=== PATIENT | male | born 1955 | race Caucasian/White ===

== ENCOUNTER 2017-06-09 18:00 | Outpatient (RCR) | payer OTHER, SELFPAY ==
--- NOTE | 2017-02-12 15:32 | HP.OTEVAL_ITS ---
Patient's Visit Information JOHN ROBLES is a 61 year old M, referred to Occupational Therapy by Mariangel Cardoso,, with a diagnosis of TIA. Date of Evaluation: 02/12/17 Occupational Therapist: Abby Ramey - Subjective Subjective: Pt. arrived and noted that symptoms occured last Wednesday into Sat morning. John noted he felt fine wednesday night but when waking sat morning he had numbness and was unable to move R arm. He noted that since time of TIA he has continued to have weakness from elbow down to hand. He noted on Wednesday he had no movement in hand and has since been working on being able to open close fingers and mvoe wrist. He notes he had CTS release and trigger finger release of R hand. Initally when waking with symptoms he thought it was related to CTS release but once calling surgeon and symptoms persistent after a 30 min increment he went into ER. MRI has been conducted and confirmed TIA. - Pain Right Hand 0 Pain Intensity Range: 0 - Objective Objective/Observation: Pt. is able to form light composite fist. He has decreased ability to isolate hand movements and complete FMC related tasks. Lateral pinch is emerging as well as tripod. Extensor mechanisms of hand are extremely weak and limited finger isolation at this time. - Sensation Sensation Comments: Tested at later date to promote further undertsanding of sensory system involvement. From clinical observation Pt. very aware of where and what R hand is doing. Sensation does not seem to be pertinent factor but will be addressed with upcoming sessions. - In-Hand Manipulation Finger to Palm Translation: Severe - Right, Unable - Right, Normal - Left Palm to Finger Translation: Severe - Right, Unable - Right, Normal - Left Shift: Severe - Right, Normal - Left Rotation: Severe - Right, Unable - Right, Normal - Left - Goals Goal:: Pt. to increased strength of R dominant hand to with 10-15 lbs of L hand to promote increased strength and ability to manaipulate self-care and work items 4.5 trials 80% of the time by d/c. Goal:: Pt. R hand and wrist RFOM to be that of equal value of L nonaffected hand 4/5 trials 80% of the time to promote increased ability to move R hand and complete ADL/IADls by d/c. Goal:: Pt. to have increased finger dexterity and FMC ability through demonstration of decreased time and increased performance on 9 hole pegbaord test 2/3 trials 75% of the time with R affected hand by time of d/c. Goal:: Pt. to be (I) to complete edema management technqiues 4/5 trials 80% of the time to decrease swelling of fingers and promote increased (I) during adl/ iadls byt time of d/c. Goal:: Pt. to be mod (I) to return to all ADl/IADls with R hand 4/5 trials 80% o the time to promote increased (I) and ability to return to PLOF by time of d/ c. - Rehabilitation General Assessment: Pt., John, s/p TIA a week ago on over the nigh between wednesday to Feb 06. He previously has CTS release and trigger finger release completed . He notes no complications of R CTS at this time. Since TIA movements and muscle contractions from R elbow to hand are significantly decreased and weakened. He had since started gaining back ROM and strength in R affected hand. However, significant weakness and ROM difficulties persist and interfere with ADl/IADLs. OT to work on increasing (I) with R dominant hand to promote return to all ADl/IADls tasks including writing and typing to promote increased (I) for work related activities. Rehabilitation Potential: Good - Anticipated Interventions Anticipated Interventions: Early Active Motion, A/AAROM/PROM, Strengthening, Edema Control, Massage, Sensory Retraining, Modalities, Joint Protection/Energy Conservation, Fine Motor Coord/Yogi, Neuro Reeducation, ADL Training, Caregiver Training, Home Program - Visit Plan Frequency: 2x /Week Duration: 4-6 Weeks General Plan: John to recieve OT servcies 2x4-6 weeks with use of modalities as need to promote increased muscle contraction to help increase and promote increased ROM, strength, bilateral hand and coordination tasks, and FMC tasks to promote increased (I) and safety and decreased need for assistance to return to PLOF and all ADl/IADls. TEXT: Thank you for the opportunity to evaluate your patient. For Medicare and Medicare HMO plans, please review the plan of care and approve it. It will need to be FAXED BACK to us at [phone] for Medicare purposes. Please let me know if there are questions or concerns regarding this plan of care. Physician Signature: Date:
--- NOTE | 2017-05-12 18:52 | OTREVAL_ITS ---
Mariangel Cardoso, It has been my pleasure to treat JOHN ROBLES over the last 19 visits for TIA. Please see the progress note below for an update on the occupational therapy plan of care! Subjective: Arrievd and noted that he is doing well. 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 States he feels 80%-85% back to PLOF. Objective/Function: Progressing from previous measuremnts two weeks ago. 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 Sensation tested and has progressed from prior measurements. Sensation is as follows: R 2nd 3.84, 3rd 3.84, 4th 3.84, 5th 3.61, thumb 3.84; L 2nd 3.22, 3rd 3.84, 4th 2.83, 5th 2.83, thumb 3.22. 9 hole pegboard completed for finger dexterity and coordiantion measurments R hand scored 31.78 (between 0 -10th percetnile) and L 26.00 (between 50-75th percentiles). He is progressing at this time. Plan Frequency: 2x /Week Duration: 4-6 Weeks Plan: continue POC 1x every other week for 2 more sessions. He is to continue HEP and add in additional exercises. Goals - Goals Goal:: Pt. to increased strength of R dominant hand to with 10-15 lbs of L hand to promote increased strength and ability to manaipulate self-care and work items 4.5 trials 80% of the time by d/c. Goal:: Pt. R hand and wrist RFOM to be that of equal value of L nonaffected hand 4/5 trials 80% of the time to promote increased ability to move R hand and complete ADL/IADls by d/c. Goal:: Pt. to have increased finger dexterity and FMC ability through demonstration of decreased time and increased performance on 9 hole pegbaord test 2/3 trials 75% of the time with R affected hand by time of d/c. Goal:: Pt. to be (I) to complete edema management technqiues 4/5 trials 80% of the time to decrease swelling of fingers and promote increased (I) during adl/ iadls byt time of d/c. Goal:: Pt. to be mod (I) to return to all ADl/IADls with R hand 4/5 trials 80% o the time to promote increased (I) and ability to return to PLOF by time of d/ c. Anticipated Interventions Anticipated Interventions: Early Active Motion, A/AAROM/PROM, Strengthening, Edema Control, Massage, Sensory Retraining, Modalities, Joint Protection/Energy Conservation, Fine Motor Coord/Yogi, Neuro Reeducation, ADL Training, Caregiver Training, Home Program Please do not hesitate to contact me at [phone] by phone or Fax: if you have questions or concerns regarding this new plan of care! Sincerely, Abby Ramey
--- NOTE | 2017-05-12 18:57 | HP.OTCOM ---
OT Communication Note 05/12/[address] Mariangel Guerreromarlon Langston has been attending OT session over the past month and a half. His latest measurements on 04/21/17 are as follows: Reassessment completed. Pt. strength progressing as he had limited mobility of R hand and forearm at start of session. Pt. 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 Touch sensation is as follows as measured through monofilament test: R 2nd 4.08, 3rd 3.84, 4th 3.84, 5th 3.61, thumb 3.84; L 2nd 3.22, 3rd 3.84, 4th 3.61, 5th 3.61, thumb 3.61. Kian has continued to progress as shown through measurements taken today 05/12/17. 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 Sensation tested and has progressed from prior measurements. Sensation is as follows: R 2nd 3.84, 3rd 3.84, 4th 3.84, 5th 3.61, thumb 3.84; L 2nd 3.22, 3rd 3.84, 4th 2.83, 5th 2.83, thumb 3.22. 9 hole pegboard completed for finger dexterity and coordination measurements R hand scored 31.78 (between 0-10th percentile) and L 26.00 (between 50-75th percentiles). He is progressing at this time. Kian is to continue OT for 2 more session every other week. He is to continue HEP. Sincerely, Abby Ramey Contact Information
--- NOTE | 2017-05-12 18:59 | OTREVAL_ITS ---
Mariangel Cardoso, It has been my pleasure to treat JOHN ROBLES over the last 19 visits for TIA. Please see the progress note below for an update on the occupational therapy plan of care! Subjective: Arrievd and noted that he is doing well. 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 States he feels 80%-85% back to PLOF. Objective/Function: John has been attending OT session over the past month and a half. His latest measurements on 04/21/17 are as follows: Reassessment completed. Pt. strength progressing as he had limited mobility of R hand and forearm at start of session. Pt. 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 Touch sensation is as follows as measured through monofilament test: R 2nd 4.08 , 3rd 3.84, 4th 3.84, 5th 3.61, thumb 3.84; L 2nd 3.22, 3rd 3.84, 4th 3.61, 5th 3.61, thumb 3.61. John has continued to progress as shown through measurements taken today 05/12/17. 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 Sensation tested and has progressed from prior measurements. Sensation is as follows: R 2nd 3.84, 3rd 3.84, 4th 3.84, 5th 3.61, thumb 3.84; L 2nd 3.22, 3rd 3.84, 4th 2.83, 5th 2.83, thumb 3.22. 9 hole pegboard completed for finger dexterity and coordination measurements R hand scored 31.78 (between 0-10th percentile) and L 26.00 (between 50-75th percentiles). He is progressing at this time. Plan Frequency: 2x /Week Duration: 4 Weeks Plan: continue POC 1x every other week for 2 more sessions. He is to continue HEP and add in additional exercises. Goals - Goals Goal:: Pt. to increased strength of R dominant hand to with 10-15 lbs of L hand to promote increased strength and ability to manaipulate self-care and work items 4.5 trials 80% of the time by d/c. Goal:: Pt. R hand and wrist RFOM to be that of equal value of L nonaffected hand 4/5 trials 80% of the time to promote increased ability to move R hand and complete ADL/IADls by d/c. Goal:: Pt. to have increased finger dexterity and FMC ability through demonstration of decreased time and increased performance on 9 hole pegbaord test 2/3 trials 75% of the time with R affected hand by time of d/c. Goal:: Pt. to be (I) to complete edema management technqiues 4/5 trials 80% of the time to decrease swelling of fingers and promote increased (I) during adl/ iadls byt time of d/c. Goal:: Pt. to be mod (I) to return to all ADl/IADls with R hand 4/5 trials 80% o the time to promote increased (I) and ability to return to PLOF by time of d/ c. Anticipated Interventions Anticipated Interventions: Early Active Motion, A/AAROM/PROM, Strengthening, Edema Control, Massage, Sensory Retraining, Modalities, Joint Protection/Energy Conservation, Fine Motor Coord/Yogi, Neuro Reeducation, ADL Training, Caregiver Training, Home Program Please do not hesitate to contact me at [phone] by phone or Fax: if you have questions or concerns regarding this new plan of care! Sincerely, Abby Ramey
--- NOTE | 2017-09-09 12:09 | HP.OTDCSUM_ITS ---
HP - OT D/C Summary It has been my pleasure to treat JOHN ROBLES under orders from Mariangel Cardoso, for the diagnosis of TIA for a total of 21 visit(s). Please see the following information for a summary of their discharge status. - Objective Objective/Function: John has continued to progress with therapy activities. 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 Sensation testing completed through monofilament testing is as follows: R 2nd 3.84, 3rd 3.22, 4th 2.83, 5th 2.83, thumb 3.84; L 2nd 3.22, 3rd 3.22m 4th 2.83, 5th 2.83, thumb 3.61. Completed 9 hole pegboard tstwith R hand 30.79 and L 23.75. Majority of measurements have progressed since last re-eval 05/12/17. - Goals Patient Goals: Regain Mobility, Regain Strength, Return to Work, Decrease Swelling/Stiffness, Improve Fine Motor Skills, Use Hand/Wrist/Arm Normally Again , Sleep Better, Decrease Tingling/Numbness, Increase ROM, Be More Independent in ADLS, Decrease Sensitivity, Resume Former Household Responsibilities (Cooking ,Cleaning,Yard, etc.), Resume Hobbies Goal:: Pt. to increased strength of R dominant hand to with 10-15 lbs of L hand to promote increased strength and ability to manaipulate self-care and work items 4.5 trials 80% of the time by d/c. Goal:: Pt. R hand and wrist RFOM to be that of equal value of L nonaffected hand 4/5 trials 80% of the time to promote increased ability to move R hand and complete ADL/IADls by d/c. Goal:: Pt. to have increased finger dexterity and FMC ability through demonstration of decreased time and increased performance on 9 hole pegbaord test 2/3 trials 75% of the time with R affected hand by time of d/c. Goal:: Pt. to be (I) to complete edema management technqiues 4/5 trials 80% of the time to decrease swelling of fingers and promote increased (I) during adl/ iadls byt time of d/c. Goal:: Pt. to be mod (I) to return to all ADl/IADls with R hand 4/5 trials 80% o the time to promote increased (I) and ability to return to PLOF by time of d/ c. - Plan Plan: He is to follow up via phone call in two weeks. If doing well and progressing he will be d/c'd. If do not hear from him in 3 months will d/c'd chart regardless. - D/C Information If there are questions or concerns regarding this patient's occupational therapy , please fell free to call me at [phone]. Thank you for the referral of this patient. Sincerely, Abby Ramey
== END 2017-06-09 18:30 | disposition home or self-care (01) ==
LOC: OT 18:00
PROVIDERS: Family Provider Family Medicine; PCP Family Medicine; Visit Provider Psychiatry & Neurology Neurology
DX: R29.898 Other symptoms and signs involving the musculoskeletal system (principal)
CPT/HCPCS: 97018; 97110; 97140; 97166; 97530

== ENCOUNTER 2018-08-25 22:06 | Observation (INO) | payer OTHER, SELFPAY ==
[2018-08-25 22:08] VITALS: BP 160/85; PULSE 81; RESP 16; TEMP 36.9; O2SAT 97; BMI 33.7
[2018-08-25 22:15] LABS: Bedside Glucose 120 mg/dL (70-110)
[2018-08-25 22:56] VITALS: BP 155/90; PULSE 72; RESP 18; O2SAT 94; O2SAT 96
--- NOTE | 2018-08-25 22:56 | CT_ITS ---
STUDY: CT BRAIN WITHOUT CONTRAST REASON FOR EXAM: Male, 63 years old. Right arm weakness and numbness RADIATION DOSAGE (If Supplied By Facility): CTDIvol = ( 44.99 ) mGy, DLP = ( 846.73 ) mGycm TECHNIQUE: Transaxial CT imaging of the brain was performed without administration of intravenous contrast material. Individualized dose optimization techniques were used for this CT. COMPARISON: 02/25/2017 FINDINGS: Normal soft tissue structures. Normal calvarium. Normal size ventricles and extra-axial spaces for the patient's age. There are areas of decreased attenuation within the white matter tracts of the supratentorial brain, consistent with microvascular disease changes. Normal age-related changes of the basal ganglia. Normal brainstem. Normal cerebellum. There is no intracranial hemorrhage. There are no findings of an acute ischemic infarction. Left ethmoid sinus disease. CT/Brain/Head without Contrast IMPRESSION: No CT evidence of acute infarct or hemorrhage. If there is clinical concern for hyperacute ischemia that is not evident by CT, MRI should be considered if possible. Electronically Signed: Major Sawyer MD at 23:50 EDT Tel , Service support ,
--- NOTE | 2018-08-25 22:56 | RAD_ITS ---
STUDY: X-RAY CHEST REASON FOR EXAM: Male, 63 years old. Right arm numbness TECHNIQUE: Single frontal view of the chest. COMPARISON: 02/06/2017 FINDINGS: The lungs are clear and expanded. There is no demonstrated pleural abnormality. Normal size heart. Normal mediastinum and russ. Normal visualized pulmonary arteries. Normal visualized aortic arch and descending thoracic aorta. Normal visualized thoracic spine. Normal visualized ribs, clavicles, and shoulders. There is no demonstrated abnormality of the visualized soft tissue structures of the upper abdomen. RAD/Chest 1 View IMPRESSION: Normal x-ray examination of the chest. Electronically Signed: Major Sawyer MD at 23:17 EDT Tel , Service support ,
--- NOTE | 2018-08-25 22:56 | EKG12_ITS ---
Test Reason : WEAKNESS Blood Pressure : / mmHG Vent. Rate : 072 BPM Atrial Rate : 072 BPM P-R Int : 180 ms QRS Dur : 100 ms QT Int : 384 ms P-R-T Axes : 013 013 037 degrees QTc Int : 420 ms Normal sinus rhythm Poor R wave progression Confirmed by PAULINO SANCHEZ, TRACY ([id number]), editor managing director [place] ([id number] on 08/29/2018 4:23:21 PM Referred By: GAVI[place] Confirmed By:TRACY BOB MD
--- NOTE | 2018-08-25 22:59 | ED.DCSUM_ITS ---
- ER Visit Summary Date of Service: 08/25/18 Chief Complaint: Numbness tingling and weakness of right arm History of Present Illness: The patient is a 63 M who presents with numbness tingling and weakness of the right arm. This began acutely about 2 hours ago. It is similar to when he has had a prior stroke 2 years ago. He denies any speech difficulty or slurred speech. He denies any recent illness. No fevers chest pain shortness of breath vomiting. Physical Examination: Afebrile blood pressure 160/85 vitals otherwise normal Moist mucous members Heart regular rate and rhythm Lungs clear Abdomen soft NIH stroke scale is 2, he does have drift of the right upper extremity, he has ataxia out of proportion to weakness of the right upper extremity Test Results: EKG shows sinus rhythm at a rate of 72. CBC BMP coagulation studies normal. Troponin negative. Chest x-ray normal. CT the head shows no acute infarct or hemorrhage. Emergency Department Course and Treatment: While the patient was here he also transiently had an episode of flashing lights in his vision. He has had this previously. At the time of my reevaluation it is actually resolved. Patient states he was told that this could be related to silent migraine. Although complex migraine may cause visual changes and even neurological symptoms such as paresthesias given his history of prior symptoms with stroke I do feel he will need admitted for further evaluation including MRI. He does not meet TPA criteria as his NIH is only 2. Treatment Plan: [] Disposition: Admit Impression: Right arm weakness This note was generated with [employer] dictation software. It may contain incorrect words, spelling, and punctuation that were not noted in review of the chart prior to signing ED Disposition - Plan for ED Patient: Referrals: Hernandez Botello MD [Primary Care Provider] -
[2018-08-25 23:26] VITALS: BP 154/74; PULSE 70; RESP 17; O2SAT 95
[2018-08-25 23:56] VITALS: BP 137/77; PULSE 72; RESP 17; O2SAT 94
[2018-08-25 23:56] LABS: Absolute Lymphocyte Count 2.08 X10^3/ul (0.83-4.51); Absolute Neutrophil Count 5.8 X10^3/uL (2.0-7.7); Basophil# 0.02 X10^3/uL; Basophil% 0.2 % (0-1); Eosinophil# 0.25 X10^3/uL; Eosinophils% 2.7 % (0-5); Hematocrit 42.1 % (40-54); Hemoglobin 14.7 g/dl (13.0-16.5); Lymphocyte # 2.08 X10^3/ul (4.0); Lymphocyte % 22.5 % (19-41); Mean Corp Hgb Conc 34.9 g/gl (32-36); Mean Corpuscular Hgb 30.3 pg (27.0-32.0); Mean Corpuscular Volume 86.8 fL (80-94); Mean Platelet Vol. 9.1 fl (6.2-12.0); Monocyte# 1.02 X10^3/uL; Neutrophil # 5.83 X10^3/uL (2.7-7.7); Neutrophil % 63.1 % (47-70); Platelet Count 246 K/mm3 (150-450); RBC Distribution Width CV 12.9 % (11.6-14.6); RBC Distribution Width SD 40.1 fl (35.1-43.9); Red Blood Count 4.85 M/mm3 (4.6-6.2); White Blood Count 9.3 K/mm3 (4.4-11.0)
[2018-08-26] VITALS (11 sets, daily range): BP systolic 132–146; BP diastolic 70–89; PULSE 61–74; RESP 13–18; TEMP 36.5–36.8; O2SAT 94–98; BMI 31.8
[2018-08-26 00:02] LABS: POSITIVE COUNT NO; POSITIVE DIFFERENTIAL NO; POSITIVE MORPHOLOGY NO; Prothrombin Time (Protime)PT. 12.9 SECONDS (11.7-14.9)
[2018-08-26 00:10] LABS: Anion Gap 7 (5-15); BUN 18 mg/dL (7-18); Calcium,Total 8.8 mg/dL (8.5-10.1); Chloride 107 mmol/L (98-107); Creatinine, Serum 1.06 mg/dL (0.70-1.30); EST Glomerular Filtration Rate 75 mL/min (>60); Est Glom Filt Rate - Afr Amer 91 mL/min (>60); Estimated Creatinine Clearance 67.56 ml/min; Glucose 97 mg/dL (74-106); Potassium 3.6 mmol/L (3.5-5.1); Sodium Level 142 mmol/L (136-145)
--- NOTE | 2018-08-26 00:56 | PCM.HP.STD ---
Problem List (1) HLD (hyperlipidemia) Status: Chronic (2) HTN (hypertension) Status: Chronic History of Present Illness Date of Admission: 08/26/18 Chief Complaint: right arm weakness The patient is a 63 year old M with a significant history of hypertension; hyperlipidemia;. TIA who presented to the emergency department with 2-hour history of right weakness and numbness. Also at the emergency department patient saw floaters which he attributes to probable migraine. Emergency department doctor reported that patient had a drift of his right arm; and incoordination using his right arm and that was disproportional to his right arm weakness. Past Medical History Past Medical History (Chronic Problems): Chronic Problems Colon polyps (Chronic) GERD (gastroesophageal reflux disease) (Chronic) Obesity (BMI 30.0-34.9) (Chronic) HLD (hyperlipidemia) (Chronic) HTN (hypertension) (Chronic) Allergies No Known Allergies Allergy (Verified 08/25/18 22:11) Home Medications: Ambulatory Orders Medication Instructions Recorded Aspirin [Aspirin, Baby] 81 mg PO DAILY@0800 02/25/17 Atorvastatin Calcium [Lipitor] 80 mg PO QHS 02/25/17 Lisinopril [Zestril] 40 mg PO DAILY 02/25/17 Multivitamin [Daily Multiple 1 each PO DAILY 02/25/17 Vitamin] Hydrochlorothiazide [Hctz] 12.5 mg PO DAILY 08/26/18 Surgical History: appendectomy, - - Carpal tunnel release on the right wrist 01/01/17. Lives: Spouse/ Significant Other Smoking Status: Never smoker - *Family History Maternal History Items: Diabetes, Hypertension Paternal History Items: Diabetes, Heart Disease - father had an [place] in his 80's and he was a diet controlled diabetic Review of Systems Constitutional: Denies: Chills, Fever, Weight Change Eyes: Reports: Vision Change - Transient HEENT: Denies: Head Aches, Sinus Congestion, Sinus Drainage Cardiovascular: Denies: Chest Pain, Palpitations Respiratory: Denies: Cough, Shortness of breath at rest, Sputum production Gastrointestinal: Denies: Abdominal Pain, Nausea, Vomiting Genitourinary: Denies: Dysuria Musculoskeletal: Denies: Joint Pain, Joint Tenderness Skin: Denies: Rash, Wounds Neurological: Reports: Focal weakness - Right arm, Numbness - Right arm. Denies: Tingling Psychiatric: Denies: Anxiety, Depression, Homicidal Ideations, Suicidal Ideations Hematologic/ Lymphatic: Denies: Easy Bruising, Easy Bleeding VTE Information - Inpt Only VTE Present on Admission: No VTE Mechan Device Prophylaxis: None VTE Pharm Prophylaxis ordered?: Yes - Physical Exam General: Alert, Oriented x3, Cooperative HEENT: Atraumatic, PERRLA, EOMI, Normocephalic Neck: Supple, No JVD, Negative Carotid Bruits Lungs: Clear to auscultation, Normal air movement Cardiovascular: Regular rate, No murmurs Abdomen: Bowel Sounds Present, Soft, Non Tender Extremities: No edema, Capillary Refill Less than 3 Seconds Skin: No rashes, No breakdown Musculoskeletal: No Tenderness to Palpation of Joints or Extremities Neurological: Deep Tendon Reflexes 2+/4 and Symmetrical, - - Right arm dysmetria with difficulty to do [id number] test. Right upper arm strength appears to be slightly weaker than left. Strength in all extremities unremarkable. Psych/Mental Status: Normal Affect, Appropriate Vital Signs Temp Pulse Resp BP Pulse Ox 98.4 F 70 13 146/87 H 94 08/25/18 22:08 08/26/18 00:35 08/26/18 00:35 08/26/18 00:35 08/26/18 00:35 Oxygen Delivery Method Room Air Weight: 97.9 kg Body Mass Index (BMI) 33.7 Finger Stick Blood Glucose 120 Laboratory Tests Past 24 Hrs 08/25/18 08/25/18 08/25/18 23:45 23:45 23:45 WBC 9.3 RBC 4.85 Hgb 14.7 Hct 42.1 MCV 86.8 MCH 30.3 MCHC 34.9 RDW 12.9 RDW Differential 40.1 Plt Count 246 MPV 9.1 Immature Gran % (Auto) 0.500 Neut % (Auto) 63.1 Lymph % (Auto) 22.5 [place] % (Auto) 11.0 H Eos % (Auto) 2.7 Baso % (Auto) 0.2 Absolute Neuts (auto) 5.8 Absolute Lymphs (auto) 2.08 Total Counted Not Reportable PT 12.9 INR 1.0 APTT 25.0 Sodium 142 Potassium 3.6 Chloride 107 Carbon Dioxide 28.0 Anion Gap 7 BUN 18 Creatinine 1.06 Estim Creat Clear Calc 67.56 Est GFR (MDRD) Af Amer 91 Est GFR (MDRD) Non-Af 75 BUN/Creatinine Ratio 17.0 Glucose 97 Calcium 8.8 Troponin I < 0.015 POC Glucose 08/25/18 22:13 POC Glucose 120 H Assessment/Plan All Active Problems Stroke (Acute) Right arm weakness (Acute) The patient is a 63 year old M with a significant history of hypertension; hyperlipidemia;. TIA who presented to the emergency department with 2-hour history of right weakness and numbness; drift of his right and dysmetria consistent with strokelike symptoms. Stroke-like symptoms NINDS NIH Scale on admission was 2 CT of the head was unremarkable -Check Hba1c, Lipid level Physical therapy, occupational therapy to work with patient. N.p.o. until bedside swallow eval. Continue Daily aspirin and High intensity statin Permissive hypertension. Control blood pressure with labetalol for systolic blood pressure of more than 220 or diastolic blood pressure of more than 120. 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 Patient requesting something to relax and before MRI. Ativan enroute MRI ordered. Echocardiogram ordered. Hypertension On presentation his blood pressure was not within goal. However will do permissive hypertension for stroke. Trend blood pressures. Hyperlipidemia High intensity statin continued. EDUAR Bipap per home settings DVT prophylaxis Code Visit OBSV E&M: 17826 Initial observation care L3
--- NOTE | 2018-08-26 02:00 | MRI_ITS ---
We are attempting to reach an attending provider to discuss findings. An addendum with communication details will be sent when the communication is complete. STUDY: MRI BRAIN WITHOUT CONTRAST REASON FOR EXAM: Male, 63 years old. rt arm numbness since 9pm yesterday, hx prev stroke 2017 TECHNIQUE: Standardized multiplanar fat and water weighted pulse sequences were obtained. COMPARISON: February 07, 2017 FINDINGS: Normal size of the ventricles and extra-axial spaces for the patient's age. There are a limited number of small white matter hyperintensities, distributed throughout the deep white matter tracts of the cerebral hemispheres, consistent with mild chronic white matter ischemic changes. There are small areas of restricted diffusion involving the posterior left frontal lobe with probable signal on ADC map, consistent with acute infarction. This is approximately the same region as the previous infarct in 2017. Normal bilateral basal ganglia. Normal thalami. There is no extra-axial fluid accumulation. Normal flow voids within the major intracranial circulation suggesting patency by spin echo criteria. Normal sella turcica, pituitary gland, infundibular stalk, optic chiasm and hypothalamus. Normal tectal plate and pineal gland. Normal midbrain, pancho and medulla. Normal cerebellum. Normal basal cisterns. Normal bilateral temporal bones. MRI/Brain without Contrast IMPRESSION: Small acute infarcts of the left frontal lobe. Electronically Signed: Nora Warner MD at 9:40 EDT Tel , Service support ,
--- NOTE | 2018-08-26 02:00 | MRI_ITS ---
STUDY: MRA NECK WITHOUT CONTRAST REASON FOR EXAM: Male, 63 years old. CVA -- rt arm numbness since 9pm yesterday, hx prev stroke 2017. TECHNIQUE: Source images were obtained, MIPs were performed. The study was performed unenhanced. COMPARISON: February 06, 2017 FINDINGS: Examination is degraded by motion artifact. RIGHT CAROTID ARTERIES: Antegrade flow within the right common carotid artery (CCA). Antegrade flow within the right carotid bulb. There appears to be high-grade stenosis at the origin of the right ICA. Antegrade flow within the visualized cervical portion of the right internal carotid artery. LEFT CAROTID ARTERIES: Antegrade flow within the left common carotid artery (CCA). Antegrade flow within the left common carotid bulb. There appears to be high-grade stenosis at the origin of the left ICA. Antegrade flow within the visualized cervical portion of the left internal carotid artery. VERTEBRAL ARTERIES: Antegrade flow within the bilateral vertebral artery. MRI/MRA Neck WITH and W/O Contrast IMPRESSION: High-grade stenosis of the bilateral ICAs. Further characterization with sonography or CTA is recommended. Electronically Signed: Nora Warner MD at 9:28 EDT Tel , Service support ,
--- NOTE | 2018-08-26 02:00 | ECHOCS_ITS ---
Reason For Study: TIA Procedure This was a 2D Doppler, Color Flow transthoracic echocardiogram. The study was technically difficult. Contrast injection was performed. Exam performed portable in patient room. Left Ventricle Normal LV size. Left ventricular systolic function is normal. The estimated ejection fraction is 60 %. No evidence for diastolic dysfunction. No regional wall motion abnormalities noted. Right Ventricle Normal RV size. Normal systolic function. Atria Normal left atrium. Normal right atrium. No doppler evidence for ASD. Mitral Valve There is no mitral annular calcification. Normal mitral valve. Trivial mitral valve insufficiency. Tricuspid Valve Normal tricuspid valve. Trivial tricuspid valve insufficiency. Right ventricular systolic pressure estimated to be 21 mmHg. Aortic Valve Trisinus/trileaflet aortic valve. Mild diffuse aortic valve thickening. Mild focal aortic valve calcification. Mild (1+) eccentric aortic valve insufficiency. Pulmonic Valve The pulmonic valve is not well visualized. Mild (1+) pulmonic valve insufficiency. Great Vessels Normal sized aortic root. Pericardium/Pleural No pericardial effusion. Medication Diluted definity 3ml given slow IV push to enhance endocardial definition. MMode/2D Measurements & Calculations LVIDd: 4.7 cm IVSd: 1.1 cm Ao root diam: 3.7 cm LVIDs: 3.0 cm LVPWd: 1.1 cm RVDd: 4.1 cm FS: 35.5 % LAV(MOD-bp): 49.2 ml LVAd ap4: 32.6 cm2 SV(MOD-sp4): 70.0 ml LAV(MOD-bp) Indexed: 24.2 ml/m2 EDV(MOD-sp4): 103.2 ml LAV(MOD-sp2): 46.1 ml EDV(sp4-el): 105.5 ml LAV(MOD-sp4): 47.7 ml LVAs ap4: 16.7 cm2 ESV(MOD-sp4): 33.2 ml ESV(sp4-el): 32.8 ml EF(MOD-sp4): 67.8 % EF(sp4-el): 68.9 % SV(sp4-el): 72.7 ml LA A4 area: 18.5 cm2 LA dimension(2D): 3.9 cm RA A4 area: 13.5 cm2 Doppler Measurements & Calculations MV E max fili: 66.4 cm/sec Lat Peak E' Fili: 7.9 cm/sec Med Peak E' Fili: 5.1 cm/sec MV A max fili: 91.9 cm/sec E/E' lat: 8.4 E/E' med: 13.0 MV E/A: 0.72 Ao V2 max: 132.0 cm/sec AI max fili: 364.8 cm/sec LV V1 max: 109.9 cm/sec Ao max P.0 mmHg AI max P.7 mmHg LV V1 max P.8 mmHg Ao V2 mean: 85.9 cm/sec Ao mean P.3 mmHg AI dec slope: 190.7 cm/sec2 Ao V2 VTI: 30.4 cm AI P1/2t: 560.4 msec PA V2 max: 73.2 cm/sec TR max fili: 212.7 cm/sec TR max P.1 mmHg Interpretation Summary The study was technically difficult. Contrast injection was performed. Left ventricular systolic function is normal. The estimated ejection fraction is 60 %. Trivial mitral valve insufficiency. Trivial tricuspid valve insufficiency. Mild diffuse aortic valve thickening. Mild focal aortic valve calcification. Mild (1+) pulmonic valve insufficiency. Right ventricular systolic pressure estimated to be 21 mmHg. No evidence for diastolic dysfunction. Ordering Physician: Perry Frost Referring Physician: Dez Botello Performed By: Giuliana Urban, BRITT, RVT
--- NOTE | 2018-08-26 02:00 | MRI_ITS ---
STUDY: MRA OF THE HEAD WITHOUT CONTRAST REASON FOR EXAM: Male, 63 years old. CVA CVA MRA - Head/Neck. Right arm weakness and numbness TECHNIQUE: 3-D [id number]-[id number] (TOF) imaging was performed with MIPs. The study was performed unenhanced. COMPARISON: None. FINDINGS: Normal bilateral petrous carotid arteries. Normal right cavernous carotid artery with a normal supraclinoid bifurcation. Normal left cavernous carotid artery with a normal supraclinoid bifurcation. Normal right A1 segments of the anterior cerebral artery. Normal left A1 segments of the anterior cerebral artery. Normal intact anterior communicating artery (ACOM). Normal bilateral A2 segments of the anterior cerebral arteries. Normal right M1 and M2 segments of the middle cerebral arteries, with a normal M1 bifurcation. Normal left M1 and M2 segments of the middle cerebral arteries, with a normal M1 bifurcation. Normal right posterior communicating artery (PCOM). There is non-visualization of the left posterior communicating artery (PCOM). Normal bilateral vertebral arteries. Normal basilar artery with a normal basilar bifurcation. Normal bilateral posterior cerebral arteries. There is no demonstrated aneurysm of the [place]. There is no major vessel occlusion or hemodynamically significant stenosis. There is no demonstrated abnormality of the visualized brain. MRI/MRA Head ONLY without Contrast IMPRESSION: There is no major vessel occlusion or hemodynamically significant stenosis. Electronically Signed: Nora Warner MD at 9:24 EDT Tel , Service support ,
[2018-08-26] MEDS: Heparin Injection (Vial) 5,000 UNIT/ML VIAL 5000 UNIT SC (05:14)
[2018-08-26] MEDS: Atorvastatin Calcium 80 MG Tablet PO (05:14)
[2018-08-26 06:14] LABS: Cholesterol 98 mg/dL (200); High Density Lipoprotein 36 mg/dL; Triglycerides 80 mg/dL; Very Low Density Lipoprotein 16 mg/dL (5-40)
[2018-08-26] MEDS: 0.9% NaCl Peripheral Flush Adult/Peds IV (06:35)
[2018-08-26] MEDS: LORazepam 2 MG/ML Syringe 1 MG IV (06:39)
[2018-08-26 07:09] LABS: Hemoglobin A1c 5.8 % (4.2-6.3)
[2018-08-26] MEDS: Aspirin 81 MG TAB.CHEW PO (08:11)
--- NOTE | 2018-08-26 09:20 | CASEMGMT ---
Patient has a Healthcare POA and Healthcare LW on file. Lea RENNER STAFFING RECRUITER
--- NOTE | 2018-08-26 10:50 | CON.PCM_ITS ---
Reason for Consult Date of Consultation: 08/26/18 Reason for Consultation: left mca cva History of Present Illness: The patient is a 63 year old M with new right upper extremity weakness identical to his previous stroke 2 yrs ago from which he completely recovered. denies speech, vision or leg abnormalities. compliant with asa and bilevel therapy. reports sbp at home usually 145, not higher, coming down. with his last stroke he had a negative 30d event monitor. echo done results pending. no family history of stroke or clots. per admit note:The patient is a 63 year old M with a significant history of hypertension; hyperlipidemia;. TIA who presented to the emergency department with 2-hour history of right weakness and numbness. Also at the emergency department patient saw floaters which he attributes to probable migraine. Emergency department doctor reported that patient had a drift of his right arm; and incoordination using his right arm and that was disproportional to his right arm weakness. Past Medical History Past Medical History (Chronic Problems): Chronic Problems Colon polyps (Chronic) GERD (gastroesophageal reflux disease) (Chronic) Obesity (BMI 30.0-34.9) (Chronic) HLD (hyperlipidemia) (Chronic) HTN (hypertension) (Chronic) Allergies No Known Allergies Allergy (Verified 08/25/18 22:11) Home Medications: Ambulatory Orders Medication Instructions Recorded Aspirin [Aspirin, Baby] 81 mg PO DAILY@0800 02/25/17 Atorvastatin Calcium [Lipitor] 80 mg PO QHS 02/25/17 Lisinopril [Zestril] 40 mg PO DAILY 02/25/17 Multivitamin [Daily Multiple 1 each PO DAILY 02/25/17 Vitamin] Hydrochlorothiazide [Hctz] 12.5 mg PO DAILY 08/26/18 Surgical History: appendectomy, - - Carpal tunnel release on the right wrist 01/01/17. Lives: Spouse/ Significant Other Smoking Status: Never smoker Alcohol: Occasional - *Family History Maternal History Items: Diabetes, Hypertension Paternal History Items: Diabetes, Heart Disease - father had an MS in his 80's and he was a diet controlled diabetic Review of Systems Constitutional: Denies: Chills, Fever, Weight Change HEENT: Denies: Head Aches, Sinus Congestion, Sinus Drainage Cardiovascular: Denies: Chest Pain, Palpitations Respiratory: Denies: Cough, Shortness of breath at rest, Sputum production Gastrointestinal: Denies: Abdominal Pain, Nausea, Vomiting Genitourinary: Denies: Dysuria Musculoskeletal: Denies: Joint Pain, Joint Tenderness Skin: Denies: Rash, Wounds Neurological: Reports: Focal weakness. Denies: Numbness, Tingling Psychiatric: Denies: Anxiety, Depression, Homicidal Ideations, Suicidal Ideations Hematologic/ Lymphatic: Denies: Easy Bruising, Easy Bleeding - Physical Exam Neurological: Cranial nerves II-XII grossly intact, Deep Tendon Reflexes 2+/4 and Symmetrical, Neuro grossly intact, Sensory exam intact to light touch and pain, - - mild rue drift only Psych/Mental Status: Normal Affect Vital Signs Temp Pulse Resp BP Pulse Ox 36.5 C L 65 16 134/80 H 94 08/26/18 09:30 08/26/18 09:30 08/26/18 09:30 08/26/18 09:30 08/26/18 09:30 Oxygen Flow Rate (L/min) 2 Oxygen Delivery Method Room Air Weight: 92 kg Body Mass Index (BMI) 31.8 Finger Stick Blood Glucose 120 Intake and Output for Last 24 Hours 08/24/18 08/25/18 08/26/18 23:59 23:59 23:59 Intake Total 120 / 120 Balance 120 / 120 Laboratory Tests Past 24 Hrs 08/25/18 08/25/18 08/25/18 23:45 23:45 23:45 WBC 9.3 RBC 4.85 Hgb 14.7 Hct 42.1 MCV 86.8 MCH 30.3 MCHC 34.9 RDW 12.9 RDW Differential 40.1 Plt Count 246 MPV 9.1 Immature Gran % (Auto) 0.500 Neut % (Auto) 63.1 Lymph % (Auto) 22.5 [place] % (Auto) 11.0 H Eos % (Auto) 2.7 Baso % (Auto) 0.2 Absolute Neuts (auto) 5.8 Absolute Lymphs (auto) 2.08 Total Counted Not Reportable PT 12.9 INR 1.0 APTT 25.0 Sodium 142 Potassium 3.6 Chloride 107 Carbon Dioxide 28.0 Anion Gap 7 BUN 18 Creatinine 1.06 Estim Creat Clear Calc 67.56 Est GFR (MDRD) Af Amer 91 Est GFR (MDRD) Non-Af 75 BUN/Creatinine Ratio 17.0 Glucose 97 Hemoglobin A1c Calcium 8.8 Troponin I < 0.015 Triglycerides Cholesterol LDL Cholesterol VLDL Cholesterol HDL Cholesterol 08/26/18 08/26/18 05:35 05:35 WBC RBC Hgb Hct MCV MCH MCHC RDW RDW Differential Plt Count MPV Immature Gran % (Auto) Neut % (Auto) Lymph % (Auto) Rosebud % (Auto) Eos % (Auto) Baso % (Auto) Absolute Neuts (auto) Absolute Lymphs (auto) Total Counted PT INR APTT Sodium Potassium Chloride Carbon Dioxide Anion Gap BUN Creatinine Estim Creat Clear Calc Est GFR (MDRD) Af Amer Est GFR (MDRD) Non-Af BUN/Creatinine Ratio Glucose Hemoglobin A1c 5.8 Calcium Troponin I Triglycerides 80 Cholesterol 98 LDL Cholesterol 46 VLDL Cholesterol 16 HDL Cholesterol 36 L POC Glucose 08/25/18 22:13 POC Glucose 120 H Current Home Med List Medication Instructions Recorded Confirmed Type Aspirin [Aspirin, Baby] 81 mg PO DAILY@0800 02/25/17 08/26/18 History Atorvastatin Calcium [Lipitor] 80 mg PO QHS 02/25/17 08/26/18 History Lisinopril [Zestril] 40 mg PO DAILY 02/25/17 08/26/18 History Multivitamin [Daily Multiple 1 each PO DAILY 02/25/17 08/26/18 History Vitamin] Hydrochlorothiazide [Hctz] 12.5 mg PO DAILY 08/26/18 08/26/18 History Current Medications Generic Name Dose Route Start Last Admin Trade Name Freq PRN Reason Stop Dose Admin Acetaminophen 650 mg 08/26/18 02:00 Tylenol PO Q6H PRN PRN Mild pain 1-3/Temp > 100.7 F Aspirin 81 mg 08/26/18 08:00 08/26/18 08:11 Aspirin, Baby PO 81 mg DAILY@0800 [facility] Administration Atorvastatin Calcium 80 mg 08/26/18 22:00 08/26/18 05:14 Lipitor PO 80 mg QHS ROM Administration Dextrose 0 gm 08/26/18 02:00 D50w Syringe IV X1 PRN Hypoglycemia Protocol Glucagon 1 mg 08/26/18 02:00 IM .X1 PRN Hypoglycemia Heparin Sodium (Porcine) 5,000 unit 08/26/18 06:00 08/26/18 05:14 Heparin Na SC 5,000 unit Q8 ROM Administration Labetalol HCl 10 mg 08/26/18 02:00 Trandate IV 08/27/18 02:01 Q10M PRN MAINTAIN BP < 220/120 Lorazepam 1 mg 08/26/18 03:11 08/26/18 06:39 Ativan IV 1 mg X1 PRN Administration for director of manufacturing operations to mri Ondansetron HCl 4 mg 08/26/18 02:00 Zofran IV Q8H PRN PRN NAUSEA/VOMITING Sodium Chloride 5 - 15 ml 08/26/18 03:00 08/26/18 06:35 IV 10 ml UD PRN Administration SALINE FLUSH Assessment/Plan All Active Problems Stroke (Acute) Right arm weakness (Acute) acute left mca infarct, mri reviewed, very small left mca diffusion abnormality, mra no stenosis. hx of left mca stroke with complete recovery in '17. compliant with bipap therapy. 30d event monitor negative two years ago plavix, dc asa bp control await echo results pt/ot/sp rehab not needed ok to dc if above negative, repeat 30d event monitor as op followup as op as planned repeat bipap titration
--- NOTE | 2018-08-26 11:59 | DCINST_ITS ---
You will use the following diet at home:: Cardiac Your food should be the consistency of: Regular Your liquids should be the consistency of: Regular/Thin Discharge Activity: Return to Normal Activity Allergies/Adverse Reactions: Allergies No Known Allergies Allergy (Verified 08/25/18 22:11) Medications to take at Discharge Atorvastatin Calcium [Lipitor] 80 mg PO QHS 02/25/17 Multivitamin [Daily Multiple Vitamin] 1 each PO DAILY 02/25/17 Clopidogrel Bisulfate [Plavix] 75 mg PO DAILY #30 tablet 08/26/18 Hydrochlorothiazide [Hctz] 12.5 mg PO DAILY #0 08/26/18 Lisinopril [Zestril] 40 mg PO DAILY #0 08/26/18 The following prescriptions were given: Clopidogrel Bisulfate [Plavix] 75 mg PO DAILY #30 tablet Primary Care Physician: Hernandez Botello MD [Primary Care Provider] - Please follow up with your Primary Care Physician in: 1-2 weeks Test Results: Test results from this visit will be discussed in further detail at your follow- up appointment, if applicable. Please Follow Up With: Junaid Darby MD When: 3-4 weeks Proposed Discharge Date: 08/26/18
--- NOTE | 2018-08-26 12:40 | CDU_ITS ---
Reason For Study: CVA Rt. Velocities/BP Lt. Velocities/BP Prox CCA 112.2/13.7 cm/sec. Prox CCA 101/13.3 cm/sec. Mid CCA 71.6/13.9 cm/sec. Mid CCA 75.4/11.5 cm/sec. Dist CCA 75.3/12.6 cm/sec. Dist CCA 64.5/17 cm/sec. Prox ICA 54.4/20 cm/sec. Prox ICA 79/13.9 cm/sec. Mid ICA 77.7/18.8 cm/sec. Mid ICA 97.4/27.9 cm/sec. Dist ICA 54.4/18.8 cm/sec. Dist ICA 86.4/27.9 cm/sec. Rt. ICA/CCA = 1.0. Lt. ICA/CCA = 1.3. Prox ECA 82.6/9 cm/sec. Prox ECA 81.6/6.9 cm/sec. Rt. Vert. 33.4/7.2 cm/sec. Lt. Vert. 75.1/17.9 cm/sec. Right Extracranial There is intimal thickening but no significant atherosclerotic plaque noted in the right common carotid artery. There is homogeneous, smooth atherosclerotic plaque noted in the right internal carotid artery. There is intimal thickening but no significant atherosclerotic plaque noted in the right external carotid artery. Antegrade flow is noted in the right vertebral artery. Left Extracranial There is heterogeneous, irregular atherosclerotic plaque noted in the left common carotid artery. There is heterogeneous, irregular atherosclerotic plaque noted in the left internal carotid artery. There is intimal thickening but no significant atherosclerotic plaque noted in the left external carotid artery. Antegrade flow is noted in the left vertebral artery. Procedure Carotid Duplex [id number]. Exam performed portable in patient room. Interpretation Summary Minimal smooth plague at the proximal right internal carotid with <50% stenosis. <50% stenosis right external carotid Irregular calcific plague at the proximal left internal carotid with <50% stenosis. <50% stenosis left external carotid Patent and antegrade vertebrals bilaterally Ordering Physician: Edinson Boyd Referring Physician: Dez Botello Performed By: Babita Dennis RVT
--- NOTE | 2018-08-26 12:42 | CASEMGMT ---
SW completed a PHQ-9 with patient as he had a Stroke. He scored a 3 which indicates minimal Depression. Patient denied any resources. Lea RENNER MSW
--- NOTE | 2018-08-26 12:48 | CASEMGMT ---
KENTRELL BANEGAS assessment: Face to Face with patient for initial transition planning/care coordination assessment. KENTRELL BANEGAS introduced self and role at [facility], pt voices understanding and consents to assessment at this time. Pt is sitting up in bed in no distress at this time. Pt still c/o some right arm/hand weakness at this time but is able to lift off tray table. Pt is A/Ox4 at this time and answers all questions appropriately at this time. Care providers, pharmacy, and demographics verified at this time. PCP: [facility] Specialists: Pt states does not currently have any specialists. Preferred Pharmacy: [facility] on [address] in [place] but states would to have any meds today sent to [facility]. Insurance: [employer] Prescription Benefit: [employer] Living Will/HPOA: Pt has LW/HPOA and they are currently on file at [facility]. Pt's , Tino Chavarria, is HPOA. LNOK: Tino Chavarria, Living Arrangements: Pt states lives with in 1 story home and states no concerns at home at this time. Pt states is normally independent with ADL's. Transportation: Pt states drives self and states no transportation concerns at this time. DME/HHC: Pt states no current DME or need for any at this time. Pt states no hx of HHC or SNF in the past. Pt states no concerns with going home at time of discharge. 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 Pt states does not smoke but does drink 1-2beers daily. Pt states no further concerns/needs at this time. [facility] would like pt set up with OP therapy and pt states that he would like this set up at [facility]. Order faxed to [facility] and original to pt at this time. Pt/ aware to call [facility] if they have not heard from them in 1-2 business days, voice understanding. CM to follow for any further discharge planning/needs. Advised pt to ask for CM if any further questions/concerns/needs arise, voices understanding. Pt Goal: Home w/ OP therapy at [facility] Plan: Home w/ OP therapy at [facility] [place] KENTRELL BANEGAS
--- NOTE | 2018-08-26 14:41 | PCM.DC.SUM ---
<Flavio Mitchell - Last Filed: 08/26/18 14:41> Discharge Date and Diagnosis Date of Admission: 08/26/18 Date of Discharge: 08/26/18 - Primary Discharge Diagnosis Acute left frontal infarct, left MCA unclear etiology History of TIA Suspect underlying arrhythmia Hypertension Hyperlipidemia Obesity GERD - Secondary Discharge Diagnosis Chronic Problems Colon polyps (Chronic) GERD (gastroesophageal reflux disease) (Chronic) Obesity (BMI 30.0-34.9) (Chronic) HLD (hyperlipidemia) (Chronic) HTN (hypertension) (Chronic) Hospital Course and Treatment Imaging Results: Imaging: Carotid US pending Echo Pending CT/Brain/Head without Contrast IMPRESSION: No CT evidence of acute infarct or hemorrhage. If there is clinical concern for hyperacute ischemia that is not evident by CT, MRI should be considered if possible. RAD/Chest 1 View IMPRESSION: Normal x-ray examination of the chest. MRI/Brain without Contrast IMPRESSION: Small acute infarcts of the left frontal lobe. MRI/MRA Head ONLY without Contrast IMPRESSION: There is no major vessel occlusion or hemodynamically significant stenosis. MRI/MRA Neck WITH and W/O Contrast IMPRESSION: High-grade stenosis of the bilateral ICAs. Further characterization with sonography or CTA is recommended. Consults: Mehnaz - neuro Operations: None Procedures: 2-D Echocardiogram Summary of Care Provided: Hospital Course: The patient is a 63 year old M with past medical history of TIA, hypertension, hyperlipidemia, obesity, who presented to the emergency room with complaints of right upper extremity numbness and weakness. He stated this felt similar to prior TIA. He had already been on aspirin and statin at maximum dose. He had a CT of the brain which was negative, negative troponin, negative EKG, negative chest x-ray. He was admitted to the PCU for suspected CVA. MRI of the brain was obtained and did demonstrate left frontal infarcts, MCA. Neurology was consulted. MRA of the head and neck was obtained. There was some carotid stenosis noted in the MRA of the neck in the left ICA. A follow-up carotid ultrasound was ordered. Echocardiogram was performed. The patient continued to have some ongoing right-sided weakness. He has decreased strength in the proximal and distal arm on the right side, has poor test rider strength as well. He does not appear to be affected elsewhere. His aspirin was discontinued and he was placed on Plavix, he will continue high-dose atorvastatin. He will follow-up with his carotid results this week when he follows up with neurology in the office. He will also need to follow-up with his PCP in 1 to 2 weeks. There is a suspicion that he has an underlying arrhythmia, a 30-day event monitor was ordered for him, will be read by Dr. De La Vega as an outpatient. He was discharged home in stable condition. I have written for him to pursue outpatient physical therapy for his ongoing weakness of the right side. This patient was seen by Flavio Mitchell PA-C under the supervision of Doctor Deb. [] - Physical Exam General: Alert, Oriented x3, Cooperative HEENT: Atraumatic, PERRLA, EOMI, Normocephalic Neck: Supple, No JVD, Negative Carotid Bruits Lungs: Clear to auscultation, Normal air movement Cardiovascular: Regular rate, No murmurs Abdomen: Bowel Sounds Present, Soft, Non Tender Extremities: No edema, Capillary Refill Less than 3 Seconds Skin: No rashes, No breakdown Musculoskeletal: No Tenderness to Palpation of Joints or Extremities Neurological: Cranial nerves II-XII grossly intact, - - Decreased test rider strength right side, sensation intact, decreased range of motion right arm, right hand. Weakness in the right arm proximally and distally. Psych/Mental Status: Normal Affect, Appropriate, Alert and oriented to time, place, person, mood and affect Vital Signs Temp Pulse Resp BP Pulse Ox 97.7 F L 65 16 134/80 H 94 08/26/18 09:30 08/26/18 09:30 08/26/18 09:30 08/26/18 09:30 08/26/18 09:30 Oxygen Flow Rate (L/min) 2 Oxygen Delivery Method Room Air Weight: 202 lb 13.204 oz Body Mass Index (BMI) 31.8 Finger Stick Blood Glucose 120 Intake and Output for Last 24 Hours 08/24/18 08/25/18 08/26/18 23:59 23:59 23:59 Intake Total 600 / 600 Balance 600 / 600 Laboratory Tests Past 24 Hrs 08/25/18 08/25/18 08/25/18 23:45 23:45 23:45 WBC 9.3 RBC 4.85 Hgb 14.7 Hct 42.1 MCV 86.8 MCH 30.3 MCHC 34.9 RDW 12.9 RDW Differential 40.1 Plt Count 246 MPV 9.1 Immature Gran % (Auto) 0.500 Neut % (Auto) 63.1 Lymph % (Auto) 22.5 [place] % (Auto) 11.0 H Eos % (Auto) 2.7 Baso % (Auto) 0.2 Absolute Neuts (auto) 5.8 Absolute Lymphs (auto) 2.08 Total Counted Not Reportable PT 12.9 INR 1.0 APTT 25.0 Sodium 142 Potassium 3.6 Chloride 107 Carbon Dioxide 28.0 Anion Gap 7 BUN 18 Creatinine 1.06 Estim Creat Clear Calc 67.56 Est GFR (MDRD) Af Amer 91 Est GFR (MDRD) Non-Af 75 BUN/Creatinine Ratio 17.0 Glucose 97 Hemoglobin A1c Calcium 8.8 Troponin I < 0.015 Triglycerides Cholesterol LDL Cholesterol VLDL Cholesterol HDL Cholesterol 08/26/18 08/26/18 05:35 05:35 WBC RBC Hgb Hct MCV MCH MCHC RDW RDW Differential Plt Count MPV Immature Gran % (Auto) Neut % (Auto) Lymph % (Auto) [place] % (Auto) Eos % (Auto) Baso % (Auto) Absolute Neuts (auto) Absolute Lymphs (auto) Total Counted PT INR APTT Sodium Potassium Chloride Carbon Dioxide Anion Gap BUN Creatinine Estim Creat Clear Calc Est GFR (MDRD) Af Amer Est GFR (MDRD) Non-Af BUN/Creatinine Ratio Glucose Hemoglobin A1c 5.8 Calcium Troponin I Triglycerides 80 Cholesterol 98 LDL Cholesterol 46 VLDL Cholesterol 16 HDL Cholesterol 36 L POC Glucose 08/25/18 22:13 POC Glucose 120 H Discharge Diet: Low fat/ Low Cholesterol, 2000 mg Sodium Diet Discharge Activity: Return to Normal Activity Home Medications: Medications to take at Discharge Atorvastatin Calcium [Lipitor] 80 mg PO QHS 02/25/17 Multivitamin [Daily Multiple Vitamin] 1 each PO DAILY 02/25/17 Clopidogrel Bisulfate [Plavix] 75 mg PO DAILY #30 tablet 08/26/18 Hydrochlorothiazide [Hctz] 12.5 mg PO DAILY #0 08/26/18 Lisinopril [Zestril] 40 mg PO DAILY #0 08/26/18 Following Prescrptions Were Given to Patient: Clopidogrel Bisulfate [Plavix] 75 mg PO DAILY #30 tablet Other Amb Orders: 30-Day Event Recorder [[facility]] Location: None Selected Primary Care Physician: Hernandez Botello MD [Primary Care Provider] - Please follow up with your Primary Care Physician in: 1-2 weeks Please Follow Up With: Junaid Darby MD When: 3-4 weeks Please Follow Up With: Tu De La Vega MD When: as directed Disposition: Home Minutes spent on discharge:: 35 Patient Condition:: Stable Medical Necessity - Tobacco Use Smoking Status: Never smoker Meaningful Use Info Meaningful Use Diagnoses (Choose all that apply): Ischemic CVA - CVA Therapy Assessed for PT,OT and/or ST?: Yes - Ischemic Stroke Antithrombotic order at d/c?: Yes Dx of Atrial fib/flutter?: No Anticoagulant at discharge?: No Reason anticoagulant not ordered: Procedure not Indicated Statins at discharge?: Yes Primary Dx Acute Ischemic CVA?: Yes IV tPA ordered during stay?: No Reason IV t-PA not ordered: Procedure not Indicated <Edinson Boyd F - Last Filed: 08/26/18 15:26> Discharge Date and Diagnosis - Secondary Discharge Diagnosis Chronic Problems Colon polyps (Chronic) GERD (gastroesophageal reflux disease) (Chronic) Obesity (BMI 30.0-34.9) (Chronic) HLD (hyperlipidemia) (Chronic) HTN (hypertension) (Chronic) Hospital Course and Treatment Summary of Care Provided: The patient is a 63 year old M [] - Physical Exam Vital Signs Temp Pulse Resp BP Pulse Ox 98.0 F 74 14 139/77 H 96 08/26/18 15:05 08/26/18 15:05 08/26/18 15:05 08/26/18 15:05 08/26/18 15:05 Oxygen Flow Rate (L/min) 2 Oxygen Delivery Method Room Air Weight: 202 lb 13.204 oz Body Mass Index (BMI) 31.8 Finger Stick Blood Glucose 120 Intake and Output for Last 24 Hours 08/24/18 08/25/18 08/26/18 23:59 23:59 23:59 Intake Total 600 / 600 Balance 600 / 600 Laboratory Tests Past 24 Hrs 08/25/18 08/25/18 08/25/18 23:45 23:45 23:45 WBC 9.3 RBC 4.85 Hgb 14.7 Hct 42.1 MCV 86.8 MCH 30.3 MCHC 34.9 RDW 12.9 RDW Differential 40.1 Plt Count 246 MPV 9.1 Immature Gran % (Auto) 0.500 Neut % (Auto) 63.1 Lymph % (Auto) 22.5 [place] % (Auto) 11.0 H Eos % (Auto) 2.7 Baso % (Auto) 0.2 Absolute Neuts (auto) 5.8 Absolute Lymphs (auto) 2.08 Total Counted Not Reportable PT 12.9 INR 1.0 APTT 25.0 Sodium 142 Potassium 3.6 Chloride 107 Carbon Dioxide 28.0 Anion Gap 7 BUN 18 Creatinine 1.06 Estim Creat Clear Calc 67.56 Est GFR (MDRD) Af Amer 91 Est GFR (MDRD) Non-Af 75 BUN/Creatinine Ratio 17.0 Glucose 97 Hemoglobin A1c Calcium 8.8 Troponin I < 0.015 Triglycerides Cholesterol LDL Cholesterol VLDL Cholesterol HDL Cholesterol 08/26/18 08/26/18 05:35 05:35 WBC RBC Hgb Hct MCV MCH MCHC RDW RDW Differential Plt Count MPV Immature Gran % (Auto) Neut % (Auto) Lymph % (Auto) [place] % (Auto) Eos % (Auto) Baso % (Auto) Absolute Neuts (auto) Absolute Lymphs (auto) Total Counted PT INR APTT Sodium Potassium Chloride Carbon Dioxide Anion Gap BUN Creatinine Estim Creat Clear Calc Est GFR (MDRD) Af Amer Est GFR (MDRD) Non-Af BUN/Creatinine Ratio Glucose Hemoglobin A1c 5.8 Calcium Troponin I Triglycerides 80 Cholesterol 98 LDL Cholesterol 46 VLDL Cholesterol 16 HDL Cholesterol 36 L POC Glucose 08/25/18 22:13 POC Glucose 120 H Code Visit Addendum: Dr. Boyd I personally examined the patient and reviewed the chart. I agree with the above. 63-year-old male presenting with signs of a stroke. He has right upper extremity weakness and MRI was positive for a left MCA stroke. Currently an echocardiogram is pending though I do not anticipate that he will be positive, and the MRA of his neck showed bilateral stenosis and a carotid ultrasound will be done prior to discharge to evaluate velocities. He will follow-up with neurology in a week and if necessary can be referred to vascular surgery at that time for any intervention. Inpatient E&M: [id number] Disch Hosp
--- NOTE | 2018-08-26 14:47 | DS.PCM_ITS ---
<Flavio Mitchell - Last Filed: 08/26/18 14:41> Discharge Date and Diagnosis Date of Admission: 08/26/18 Date of Discharge: 08/26/18 - Primary Discharge Diagnosis Acute left frontal infarct, left MCA unclear etiology History of TIA Suspect underlying arrhythmia Hypertension Hyperlipidemia Obesity GERD - Secondary Discharge Diagnosis Chronic Problems Colon polyps (Chronic) GERD (gastroesophageal reflux disease) (Chronic) Obesity (BMI 30.0-34.9) (Chronic) HLD (hyperlipidemia) (Chronic) HTN (hypertension) (Chronic) Hospital Course and Treatment Imaging Results: Imaging: Carotid US pending Echo Pending CT/Brain/Head without Contrast IMPRESSION: No CT evidence of acute infarct or hemorrhage. If there is clinical concern for hyperacute ischemia that is not evident by CT, MRI should be considered if possible. RAD/Chest 1 View IMPRESSION: Normal x-ray examination of the chest. MRI/Brain without Contrast IMPRESSION: Small acute infarcts of the left frontal lobe. MRI/MRA Head ONLY without Contrast IMPRESSION: There is no major vessel occlusion or hemodynamically significant stenosis. MRI/MRA Neck WITH and W/O Contrast IMPRESSION: High-grade stenosis of the bilateral ICAs. Further characterization with sonography or CTA is recommended. Consults: Mehnaz - neuro Operations: None Procedures: 2-D Echocardiogram Summary of Care Provided: Hospital Course: The patient is a 63 year old M with past medical history of TIA, hypertension, hyperlipidemia, obesity, who presented to the emergency room with complaints of right upper extremity numbness and weakness. He stated this felt similar to prior TIA. He had already been on aspirin and statin at maximum dose. He had a CT of the brain which was negative, negative troponin, negative EKG, negative chest x-ray. He was admitted to the PCU for suspected CVA. MRI of the brain was obtained and did demonstrate left frontal infarcts, MCA. Neurology was consulted. MRA of the head and neck was obtained. There was some carotid stenosis noted in the MRA of the neck in the left ICA. A follow-up carotid ultrasound was ordered. Echocardiogram was performed. The patient continued to have some ongoing right-sided weakness. 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 He does not appear to be affected elsewhere. His aspirin was discontinued and he was placed on Plavix, he will continue high-dose atorvastatin. He will follow- up with his carotid results this week when he follows up with neurology in the office. He will also need to follow-up with his PCP in 1 to 2 weeks. There is a suspicion that he has an underlying arrhythmia, a 30-day event monitor was ordered for him, will be read by Dr. De La Vega as an outpatient. He was discharged home in stable condition. I have written for him to pursue outpatient physical therapy for his ongoing weakness of the right side. This patient was seen by Flavio Mitchell PA-C under the supervision of Doctor Deb. [] - Physical Exam General: Alert, Oriented x3, Cooperative HEENT: Atraumatic, PERRLA, EOMI, Normocephalic Neck: Supple, No JVD, Negative Carotid Bruits Lungs: Clear to auscultation, Normal air movement Cardiovascular: Regular rate, No murmurs Abdomen: Bowel Sounds Present, Soft, Non Tender Extremities: No edema, Capillary Refill Less than 3 Seconds Skin: No rashes, No breakdown Musculoskeletal: No Tenderness to Palpation of Joints or Extremities Neurological: Cranial nerves II-XII grossly intact, - - Decreased saw operator strength right side, sensation intact, decreased range of motion right arm, right hand. Weakness in the right arm proximally and distally. Psych/Mental Status: Normal Affect, Appropriate, Alert and oriented to time, place, person, mood and affect Vital Signs Temp Pulse Resp BP Pulse Ox 97.7 F L 65 16 134/80 H 94 08/26/18 09:30 08/26/18 09:30 08/26/18 09:30 08/26/18 09:30 08/26/18 09:30 Oxygen Flow Rate (L/min) 2 Oxygen Delivery Method Room Air Weight: 202 lb 13.204 oz Body Mass Index (BMI) 31.8 Finger Stick Blood Glucose 120 Intake and Output for Last 24 Hours 08/24/18 08/25/18 08/26/18 23:59 23:59 23:59 Intake Total 600 / 600 Balance 600 / 600 Laboratory Tests Past 24 Hrs 08/25/18 08/25/18 08/25/18 23:45 23:45 23:45 WBC 9.3 RBC 4.85 Hgb 14.7 Hct 42.1 MCV 86.8 MCH 30.3 MCHC 34.9 RDW 12.9 RDW Differential 40.1 Plt Count 246 MPV 9.1 Immature Gran % (Auto) 0.500 Neut % (Auto) 63.1 Lymph % (Auto) 22.5 [place] % (Auto) 11.0 H Eos % (Auto) 2.7 Baso % (Auto) 0.2 Absolute Neuts (auto) 5.8 Absolute Lymphs (auto) 2.08 Total Counted Not Reportable PT 12.9 INR 1.0 APTT 25.0 Sodium 142 Potassium 3.6 Chloride 107 Carbon Dioxide 28.0 Anion Gap 7 BUN 18 Creatinine 1.06 Estim Creat Clear Calc 67.56 Est GFR (MDRD) Af Amer 91 Est GFR (MDRD) Non-Af 75 BUN/Creatinine Ratio 17.0 Glucose 97 Hemoglobin A1c Calcium 8.8 Troponin I < 0.015 Triglycerides Cholesterol LDL Cholesterol VLDL Cholesterol HDL Cholesterol 08/26/18 08/26/18 05:35 05:35 WBC RBC Hgb Hct MCV MCH MCHC RDW RDW Differential Plt Count MPV Immature Gran % (Auto) Neut % (Auto) Lymph % (Auto) [place] % (Auto) Eos % (Auto) Baso % (Auto) Absolute Neuts (auto) Absolute Lymphs (auto) Total Counted PT INR APTT Sodium Potassium Chloride Carbon Dioxide Anion Gap BUN Creatinine Estim Creat Clear Calc Est GFR (MDRD) Af Amer Est GFR (MDRD) Non-Af BUN/Creatinine Ratio Glucose Hemoglobin A1c 5.8 Calcium Troponin I Triglycerides 80 Cholesterol 98 LDL Cholesterol 46 VLDL Cholesterol 16 HDL Cholesterol 36 L POC Glucose 08/25/18 22:13 POC Glucose 120 H Discharge Diet: Low fat/ Low Cholesterol, 2000 mg Sodium Diet Discharge Activity: Return to Normal Activity Home Medications: Medications to take at Discharge Atorvastatin Calcium [Lipitor] 80 mg PO QHS 02/25/17 Multivitamin [Daily Multiple Vitamin] 1 each PO DAILY 02/25/17 Clopidogrel Bisulfate [Plavix] 75 mg PO DAILY #30 tablet 08/26/18 Hydrochlorothiazide [Hctz] 12.5 mg PO DAILY #0 08/26/18 Lisinopril [Zestril] 40 mg PO DAILY #0 08/26/18 Following Prescrptions Were Given to Patient: Clopidogrel Bisulfate [Plavix] 75 mg PO DAILY #30 tablet Other Amb Orders: 30-Day Event Recorder [[facility]] Location: None Selected Primary Care Physician: Hernandez Botello MD [Primary Care Provider] - Please follow up with your Primary Care Physician in: 1-2 weeks Please Follow Up With: Junaid Darby MD When: 3-4 weeks Please Follow Up With: Tu De La Vega MD When: as directed Disposition: Home Minutes spent on discharge:: 35 Patient Condition:: Stable Medical Necessity - Tobacco Use Smoking Status: Never smoker Meaningful Use Info Meaningful Use Diagnoses (Choose all that apply): Ischemic CVA - CVA Therapy Assessed for PT,OT and/or ST?: Yes - Ischemic Stroke Antithrombotic order at d/c?: Yes Dx of Atrial fib/flutter?: No Anticoagulant at discharge?: No Reason anticoagulant not ordered: Procedure not Indicated Statins at discharge?: Yes Primary Dx Acute Ischemic CVA?: Yes IV tPA ordered during stay?: No Reason IV t-PA not ordered: Procedure not Indicated <Edinson Boyd F - Last Filed: 08/26/18 15:26> Discharge Date and Diagnosis - Secondary Discharge Diagnosis Chronic Problems Colon polyps (Chronic) GERD (gastroesophageal reflux disease) (Chronic) Obesity (BMI 30.0-34.9) (Chronic) HLD (hyperlipidemia) (Chronic) HTN (hypertension) (Chronic) Hospital Course and Treatment Summary of Care Provided: The patient is a 63 year old M [] - Physical Exam Vital Signs Temp Pulse Resp BP Pulse Ox 98.0 F 74 14 139/77 H 96 08/26/18 15:05 08/26/18 15:05 08/26/18 15:05 08/26/18 15:05 08/26/18 15:05 Oxygen Flow Rate (L/min) 2 Oxygen Delivery Method Room Air Weight: 202 lb 13.204 oz Body Mass Index (BMI) 31.8 Finger Stick Blood Glucose 120 Intake and Output for Last 24 Hours 08/24/18 08/25/18 08/26/18 23:59 23:59 23:59 Intake Total 600 / 600 Balance 600 / 600 Laboratory Tests Past 24 Hrs 08/25/18 08/25/18 08/25/18 23:45 23:45 23:45 WBC 9.3 RBC 4.85 Hgb 14.7 Hct 42.1 MCV 86.8 MCH 30.3 MCHC 34.9 RDW 12.9 RDW Differential 40.1 Plt Count 246 MPV 9.1 Immature Gran % (Auto) 0.500 Neut % (Auto) 63.1 Lymph % (Auto) 22.5 [place] % (Auto) 11.0 H Eos % (Auto) 2.7 Baso % (Auto) 0.2 Absolute Neuts (auto) 5.8 Absolute Lymphs (auto) 2.08 Total Counted Not Reportable PT 12.9 INR 1.0 APTT 25.0 Sodium 142 Potassium 3.6 Chloride 107 Carbon Dioxide 28.0 Anion Gap 7 BUN 18 Creatinine 1.06 Estim Creat Clear Calc 67.56 Est GFR (MDRD) Af Amer 91 Est GFR (MDRD) Non-Af 75 BUN/Creatinine Ratio 17.0 Glucose 97 Hemoglobin A1c Calcium 8.8 Troponin I < 0.015 Triglycerides Cholesterol LDL Cholesterol VLDL Cholesterol HDL Cholesterol 08/26/18 08/26/18 05:35 05:35 WBC RBC Hgb Hct MCV MCH MCHC RDW RDW Differential Plt Count MPV Immature Gran % (Auto) Neut % (Auto) Lymph % (Auto) [place] % (Auto) Eos % (Auto) Baso % (Auto) Absolute Neuts (auto) Absolute Lymphs (auto) Total Counted PT INR APTT Sodium Potassium Chloride Carbon Dioxide Anion Gap BUN Creatinine Estim Creat Clear Calc Est GFR (MDRD) Af Amer Est GFR (MDRD) Non-Af BUN/Creatinine Ratio Glucose Hemoglobin A1c 5.8 Calcium Troponin I Triglycerides 80 Cholesterol 98 LDL Cholesterol 46 VLDL Cholesterol 16 HDL Cholesterol 36 L POC Glucose 08/25/18 22:13 POC Glucose 120 H Code Visit Addendum: Dr. Boyd I personally examined the patient and reviewed the chart. I agree with the above. 63-year-old male presenting with signs of a stroke. He has right upper extremity weakness and MRI was positive for a left MCA stroke. Currently an echocardiogram is pending though I do not anticipate that he will be positive, and the MRA of his neck showed bilateral stenosis and a carotid ultrasound will be done prior to discharge to evaluate velocities. He will follow-up with neurology in a week and if necessary can be referred to vascular surgery at that time for any intervention. Inpatient E&M: [id number] Disch Hosp
== END 2018-08-26 17:10 | disposition home or self-care (01) | DRG 66 ==
LOC: ED 22:44 → PCU 08-26 01:33
PROVIDERS: Admitting Provider Hospitalist; Emergency Provider Emergency Medicine; Family Provider Family Medicine; PCP Family Medicine; Visit Provider Family Medicine
DX: I63.512 Cerebral infarction due to unspecified occlusion or stenosis of left middle cerebral artery (principal); G83.21 Monoplegia of upper limb affecting right dominant side; R20.2 Paresthesia of skin; R29.702 NIHSS score 2; I10 Essential (primary) hypertension; E78.5 Hyperlipidemia, unspecified; E66.9 Obesity, unspecified; K21.9 Gastro-esophageal reflux disease without esophagitis; Z68.31 Body mass index [BMI] 31.0-31.9, adult; Z86.73 Personal history of transient ischemic attack (TIA), and cerebral infarction without residual deficits; Z79.899 Other long term (current) drug therapy; Z79.82 Long term (current) use of aspirin; G47.33 Obstructive sleep apnea (adult) (pediatric)
CPT/HCPCS: 36415; 70450; 70544; 70549; 70551; 71045; 80048; 80061; 82962; 83036; 84484; 85025; 85610; 85730; 93005; 93306; 93880; 97161; 97166; 99218; 99285; A9575; Q9957; A4216; C8929; G0378

== ENCOUNTER → 2018-08-30 12:46 | Outpatient (REF) | payer OTHER, SELFPAY ==
[2018-08-26 02:31] VITALS: BMI 31.8
[2018-08-26 14:04] VITALS: BMI 31.8
== END ==
LOC: CVS 12:46
PROVIDERS: Family Provider Family Medicine; PCP Family Medicine; Referring Provider Physician Assistant; Visit Provider Physician Assistant
DX: Z86.73 Personal history of transient ischemic attack (TIA), and cerebral infarction without residual deficits (principal)
CPT/HCPCS: 93270

== ENCOUNTER 2018-10-04 18:30 | Outpatient (RCR) | payer SELFPAY ==
[2018-08-26 14:04] VITALS: BMI 31.8
--- NOTE | 2018-09-08 15:25 | HP.PTEVAL ---
Patient's Visit Information JOHN ROBLES is a 63 year old M referred to Physical Therapy by KITTY Vasquez with a diagnosis of Stroke like symptoms. Date of Evaluation: 09/08/18 Physical Therapist: Tariq Avila, DPT, OCS, CSCS - Visit Plan Plan: pt doing well with LE adn mobility and no skilled PT required at this time as he will be having OT for R UE deficits. - Subjective Findings: Had a TIA 2 weeks ago. Was watching the [employer] and sitting on floor and had hard time putting weight through arm to get up and it fet wierd. Had a stroke 2 years ago where he had a hard time moving R UE. Went to ER with squad and had Catscan and US on heart and check carotids adn MRI an confirmed stroke. Was put on blood thinner now. R arm still feels tingly laterally elbow down and weak. Mobility is good, balance normal , legs are good. Sleep is good, not in pain. 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 Has gotten back to that without difficulty with legs. Hobbies include golf and motorcycle but too busy to try. Activities normal including basic ADLs and home stuff. Tries to eat L handed which is challenging. - Objective Walks normal and trasnfers from floor and chair normal adn I. SLS 10 seconds B. UE AROM WFL today and R arm weak and diminished motor control. This will be worked on in oT. LE strength symmetrical at 4+, HS and gastroc min tight, quads mod tight. reflexes 2/3 patella and achilles. Sensation LE WNL to gross light touch. - Balance Scores Functional Gait Assessment Score: 30 % Disability: 0 CATSIB Score (Max score 120 seconds): 120 - Anticipated Interventions Thank you for the opportunity to evaluate your patient. For Medicare and Medicare HMO plans, please review the plan of care and approve it. It will need to be FAXED BACK to us at [phone] for Medicare purposes. For Medicare only, by signing this I certify the plan of care. Please let me know if there are questions or concerns regarding this plan of care. Physician Signature: Date:
--- NOTE | 2018-09-08 18:18 | HP.OTEVAL_ITS ---
Patient's Visit Information JOHN ROBLES is a 63 year old M, referred to Occupational Therapy by KITTY Vasquez, with a diagnosis of Acute MCA infarct. Date of Evaluation: 09/08/18 Occupational Therapist: Indira So - Subjective Subjective: Pt seen for initial occupational therapy evaluation after acute left MCA infarct August 25, 2018 with decreased coordination and strength of R UE. Pt was sitting watching tv with spouse and noticed increased numbness R hand to elbow so went to hospital to discover L MCA. R hand dominent. 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 Lives w/ spouse. Indep w/ BADLs/IADLs. Pt is yaya weiner. Reports no pain, tingling in R hand up to elbow. 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 R UE generalized MMT 4/5. L UE generalizsd MMT 4/5 - Edema Other: Slight edema R hand - Sensation Sensation Comments: Monofilament 2.83 R digitis, R wrist dorsal side (normal range). 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 Pt will progress w/ tripod pinch R hand by 10# to increase indep w/ functional living tasks. Goal:: Pt will demo increased coordination R hand to hold variety of cups and get to mouth w/o spillage and cut food with knife independently by d/c from OT services. Goal:: Pt will be able to write personal information with legible handwriting on baseline in 3/4 trials grasping regular pen/pencil. Goal:: Pt will be educated on R UE HEP with good understanding and demo 100%x - Rehabilitation General Assessment: Pt suffered MCA infarct 2 wks ago and demonstrates decreased coordination of R hand and decreased strength of R hand. Pt demonstrates decreased ability to legible write tasks as normal and decreased ability to open variety of containers or grasp cup for self feeding tasks w/o spillage. 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 strength, pinch strength and coordination skills to assist with functional living tasks as well as educated on R UE HEP 1-2x/wk x 4-6wks Rehabilitation Potential: Excellent - Anticipated Interventions Anticipated Interventions: A/AAROM/PROM, Strengthening, Edema Control, Modalities, Fine Motor Coord/Yogi, Neuro Reeducation, ADL Training, Education re assistive Equipment, Education re Diagnosis, Home Program - Visit Plan Frequency: 1-2x /Week Duration: 4-6 Weeks General Plan: 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 For Medicare and Medicare HMO plans, please review the plan of care and approve it. It will need to be FAXED BACK to us at [phone] for Medicare purposes. Please let me know if there are questions or concerns regarding this plan of care. Physician Signature: _Date:
== END 2018-10-04 19:00 | disposition home or self-care (01) ==
LOC: OT 18:30
PROVIDERS: Family Provider Family Medicine; PCP Family Medicine; Referring Provider Physician Assistant; Visit Provider Physician Assistant
DX: Z86.73 Personal history of transient ischemic attack (TIA), and cerebral infarction without residual deficits (principal)
CPT/HCPCS: 97110; 97161; 97166; 97530

== ENCOUNTER → 2018-11-18 21:03 | Outpatient (CLI) | payer OTHER, SELFPAY ==
[2018-08-26 14:04] VITALS: BMI 31.8
== END ==
PROVIDERS: Family Provider Family Medicine; PCP Family Medicine; Referring Provider Nurse Practitioner Family; Visit Provider Nurse Practitioner Family
DX: G47.33 Obstructive sleep apnea (adult) (pediatric) (principal); Z86.73 Personal history of transient ischemic attack (TIA), and cerebral infarction without residual deficits
CPT/HCPCS: 95811

== ENCOUNTER 2019-09-26 18:42 | Inpatient (IN) | payer OTHER, SELFPAY ==
[2018-08-26 14:04] VITALS: BMI 31.8
[2019-09-26] VITALS (10 sets, daily range): BP systolic 127–149; BP diastolic 77–90; PULSE 64–82; RESP 15–18; TEMP 36.6–36.7; O2SAT 94–98; BMI 32.3; BMI 31.2; BMI 31.3
--- NOTE | 2019-09-26 18:50 | EKG12_ITS ---
Test Reason : NEURO Blood Pressure : / mmHG Vent. Rate : 068 BPM Atrial Rate : 068 BPM P-R Int : 184 ms QRS Dur : 100 ms QT Int : 386 ms P-R-T Axes : 008 012 024 degrees QTc Int : 410 ms Normal sinus rhythm Normal ECG Confirmed by PAULINO SANCHEZ, TRACY ([id number]), metropolitan editor [place] ([id number]) on 09/29/2019 11:08:07 AM Referred By: Confirmed By:TRACY BOB MD
--- NOTE | 2019-09-26 18:50 | CT_ITS ---
We are attempting to reach an attending provider to discuss findings. An addendum with communication details will be sent when the communication is complete. STUDY: CTA HEAD AND NECK WITH CONTRAST REASON FOR EXAM: Male, 64 years old. RIGHT ARM DROOPING, RIGHT LEG WEAKNESS. H/O TIA. RADIATION DOSAGE (If Supplied By Facility): CTDIvol = ( 31.18 ) mGy, DLP = ( 1668.01 ) mGycm TECHNIQUE: CT angiography was performed with a multi-detector CT scanner. Data acquisition was obtained from the skull base through the vertex following intravenous administration of IV 100mL [id number]-370. MIP images were reconstructed from the axial data set. Post-processing of the angiographic images was performed, with multiplanar reformation and 3D reconstruction. Individualized dose optimization techniques were used for this CT. COMPARISON: No relevant priors. FINDINGS: Normal bilateral petrous carotid arteries. There is calcified plaque formation of the right cavernous carotid artery, without a cross-sectional luminal stenosis. There is calcified plaque formation of the left cavernous carotid artery, without a cross-sectional luminal stenosis. Normal right A1 segments of the anterior cerebral artery. Normal left A1 segments of the anterior cerebral artery. Normal intact anterior communicating artery (ACOM). Normal bilateral A2 segments of the anterior cerebral arteries. Normal right M1 and M2 segments of the middle cerebral arteries, with a normal M1 bifurcation. Normal left M1 and M2 segments of the middle cerebral arteries, with a normal M1 bifurcation. Normal right posterior communicating artery (PCOM). Normal left posterior communicating artery (PCOM). Normal bilateral vertebral arteries. Normal basilar artery with a normal basilar bifurcation. The visualized bilateral superior cerebellar (SCA) arteries are normal. Normal bilateral P1, P2 and visualized P3 segments of the posterior cerebral arteries. There is no demonstrated aneurysm of the [place]. There is no demonstrated abnormality of the visualized brain. AORTIC ARCH: Normal visualized aortic arch. Normal origins of the brachiocephalic, left common carotid, and left subclavian arteries. RIGHT CAROTID ARTERIES: Normal right common carotid artery (CCA). Normal right common carotid bulb. There is mild atherosclerotic plaque formation of the origin of the right internal carotid artery with less than 50% cross sectional diameter stenosis. Normal visualized cervical portion of the right internal carotid artery. Normal origin of the right external carotid artery (ECA). LEFT CAROTID ARTERIES: Normal left common carotid artery (CCA). There is moderate atherosclerotic plaque formation with moderate narrowing of the carotid bulb. There is moderate atherosclerotic plaque formation of the origin of the left internal carotid artery with an estimated stenosis of 50-69% stenosis. Normal visualized cervical portion of the left internal carotid artery. Normal origin of the left external carotid artery (ECA). VERTEBRAL ARTERIES: Normal bilateral vertebral arteries. CT/CTA Head AND Neck W/ Contrast IMPRESSION: Normal CTA Head. 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 No occlusions. No thrombosis. Electronically Signed: Gil Thornton MD at 19:18 EDT , Service support ,
--- NOTE | 2019-09-26 18:50 | CM.ED ---
Social Work Responding to stroke alert. Patient spouse, Tino present. Support provided. Tino states that patient has a history of TIA's and I am use to this. Tino states to understand current process. Tino voicing no questions. Kathryn KIM, JUD
--- NOTE | 2019-09-26 18:50 | RAD_ITS ---
STUDY: X-RAY CHEST REASON FOR EXAM: Male, 64 years old. Stroke TECHNIQUE: Single AP portable view of the chest. COMPARISON: 08/24/2018. FINDINGS: The lungs are clear and expanded. There is no demonstrated pleural abnormality. Normal size heart. Normal mediastinum and russ. Normal visualized pulmonary arteries. Normal visualized aortic arch and descending thoracic aorta. Normal visualized thoracic spine. Normal visualized ribs, clavicles, and shoulders. There is no demonstrated abnormality of the visualized soft tissue structures of the upper abdomen. RAD/Chest 1 View IMPRESSION: Normal x-ray examination of the chest. Electronically Signed: Gil Thornton MD at 19:50 EDT , Service support ,
[2019-09-26 18:56] LABS: Bedside Glucose 84 mg/dL (70-110)
[2019-09-26 19:18] LABS: Absolute Lymphocyte Count 1.74 X10^3/uL (0.83-4.51); Absolute Neutrophil Count 5.2 X10^3/uL (2.0-7.7); Basophil# 0.02 X10^3/uL; Basophil% 0.3 % (0-1); Eosinophil# 0.15 X10^3/uL; Eosinophils% 1.9 % (0-5); Hematocrit 38.8 % (40-54); Hemoglobin 13.1 g/dL (13.0-16.5); Lymphocyte # 1.74 X10^3/ul (4.0); Lymphocyte % 21.9 % (19-41); Mean Corp Hgb Conc 33.8 g/dL (32-36); Mean Corpuscular Volume 91.9 fL (80-94); Mean Platelet Vol. 9.3 fl (6.2-12.0); Monocyte% 10.1 % (0-10); NRBC Flagged by Analyzer 0 % (0-5); Neutrophil % 65.2 % (47-70); Platelet Count 222 K/mm3 (150-450); RBC Distribution Width CV 12.7 % (11.6-14.6); RBC Distribution Width SD 42.8 fl (35.1-43.9); Red Blood Count 4.22 M/mm3 (4.6-6.2)
[2019-09-26] MEDS: 0.9% Normal Saline 1,000 ML 100 ML IV (19:22)
[2019-09-26 19:26] LABS: International Normalized Ratio 1.1; Prothrombin Time (Protime)PT. 13.4 SECONDS (11.7-14.9)
[2019-09-26 19:27] LABS: Partial Thromboplast Time 26.7 Seconds (24.1-36.2)
[2019-09-26 19:31] LABS: Anion Gap 10 (5-15); BUN 15 mg/dL (7-18); BUN/Creat Ratio 15.3 RATIO (10-20); Calcium,Total 8.3 mg/dL (8.5-10.1); Chloride 107 mmol/L (98-107); Creatinine, Serum 0.98 mg/dL (0.70-1.30); EST Glomerular Filtration Rate 82 mL/min (>60); Est Glom Filt Rate - Afr Amer 99 mL/min (>60); Estimated Creatinine Clearance 69.62 ml/min; Glucose 81 mg/dL (74-106); Potassium 3.1 mmol/L (3.5-5.1); Sodium Level 143 mmol/L (136-145)
--- NOTE | 2019-09-26 19:46 | PCM.HP.STD ---
Problem List (1) Stroke-like symptoms Status: Acute (2) Colon polyps Status: Chronic (3) GERD (gastroesophageal reflux disease) Status: Chronic Qualifiers: Esophagitis presence: without esophagitis Qualified Code(s): K21.9 - Gastro-esophageal reflux disease without esophagitis (4) Acute radial nerve palsy of right upper extremity Status: Suspected (5) Obesity (BMI 30.0-34.9) Status: Chronic (6) HLD (hyperlipidemia) Status: Chronic (7) HTN (hypertension) Status: Chronic History of Present Illness Date of Admission: 09/26/19 Chief Complaint: R forearm numbness The patient is a 64 year old M with a significant history of stroke/TIA; hypertension; and hyperlipidemia who presents emergency department with numbness of his right forearms. His symptoms started while he was mowing. He presented to emergency department about 1-1/4 hour after his symptoms started. Associated with symptoms is weakness of his right forearm. Emergent department doctor discussed the case with stroke neurologist. Past Medical History Past Medical History (Chronic Problems): Chronic Problems Colon polyps (Chronic) GERD (gastroesophageal reflux disease) (Chronic) Obesity (BMI 30.0-34.9) (Chronic) HLD (hyperlipidemia) (Chronic) HTN (hypertension) (Chronic) Allergies No Known Allergies Allergy (Verified 08/25/18 22:11) Home Medications: Ambulatory Orders Medication Instructions Recorded Atorvastatin Calcium [Lipitor] 80 mg PO QHS 02/25/17 Hydrochlorothiazide [Hctz] 12.5 mg PO DAILY #0 08/26/18 Lisinopril [Zestril] 40 mg PO DAILY #0 08/26/18 Clopidogrel Bisulfate [Plavix] 75 mg PO DAILY 09/26/19 Multivitamin 1 tab PO DAILY 09/26/19 Surgical History: appendectomy, - - Carpal tunnel release on the right wrist 01/01/17.Vasectomy. Smoking Status: Never smoker Tobacco Use: Non-smoker - *Family History Maternal History Items: Diabetes, Hypertension Paternal History Items: Diabetes, Heart Disease - father had an FL in his 80's and he was a diet controlled diabetic Review of Systems Constitutional: Denies: Chills, Fever, Weight Change HEENT: Denies: Head Aches, Sinus Congestion, Sinus Drainage Cardiovascular: Denies: Chest Pain, Palpitations Respiratory: Denies: Cough, Shortness of breath at rest, Sputum production Gastrointestinal: Denies: Abdominal Pain, Nausea, Vomiting Genitourinary: Denies: Dysuria Musculoskeletal: Denies: Joint Pain, Joint Tenderness Skin: Denies: Rash, Wounds Neurological: Reports: Balance problems, Focal weakness, Numbness. Denies: Tingling Psychiatric: Denies: Anxiety, Depression, Homicidal Ideations, Suicidal Ideations Hematologic/ Lymphatic: Denies: Easy Bruising, Easy Bleeding VTE Information - Inpt Only VTE Present on Admission: No VTE Mechan Device Prophylaxis: None VTE Pharm Prophylaxis ordered?: Yes Patient Problems: Active and Suspected Problems Stroke-like symptoms (Acute) - Physical Exam Vitals/I&O's: Vital Signs Temp Pulse Resp BP Pulse Ox 97.8 F 70 15 127/77 H 98 09/26/19 18:44 09/26/19 19:20 09/26/19 19:20 09/26/19 19:20 09/26/19 19:20 Oxygen Delivery Method Room Air Weight: 90.7 kg Body Mass Index (BMI) 32.3 Finger Stick Blood Glucose 84 General: Alert, Oriented x3, Cooperative HEENT: Atraumatic, PERRLA, EOMI, Normocephalic Neck: Supple, No JVD, Negative Carotid Bruits Lungs: Clear to auscultation, Normal air movement Cardiovascular: Regular rate, Normal S1, Normal S2, No murmurs Abdomen: Bowel Sounds Present, Soft, Non Tender Extremities: No edema, Capillary Refill Less than 3 Seconds Skin: No rashes, No breakdown Musculoskeletal: No Tenderness to Palpation of Joints or Extremities Neurological: Cranial nerves II-XII grossly intact, Neuro grossly intact, Motor Exam 5/5 strength throughout, Muscle tone normal, - Psych/Mental Status: Normal Affect, Appropriate Laboratory Results 09/26/19 18:48: POC Glucose 84 09/26/19 19:05: WBC 8.0, RBC 4.22 L, Hgb 13.1, Hct 38.8 L, MCV 91.9, MCH 31.0, MCHC 33.8, RDW Std Deviation 42.8, RDW Coeff of Artie 12.7, Plt Count 222, MPV 9.3, Immature Gran % (Auto) 0.600, Neut % (Auto) 65.2, Lymph % (Auto) 21.9, [place] % (Auto) 10.1 H, Eos % (Auto) 1.9, Baso % (Auto) 0.3, Absolute Neuts (auto) 5.2, Absolute Lymphs (auto) 1.74, Nucleated RBC % 0 09/26/19 19:05: PT 13.4, INR 1.1, APTT 26.7 09/26/19 19:05: Sodium 143, Potassium 3.1 L, Chloride 107, Carbon Dioxide 26.0, Anion Gap 10, BUN 15, Creatinine 0.98, Estim Creat Clear Calc 69.62, Est GFR (MDRD) Af Amer 99, Est GFR (MDRD) Non-Af 82, BUN/Creatinine Ratio 15.3, Glucose 81, Calcium 8.3 L Current Medications Sodium Chloride () 1,000 mls @ 100 mls/hr IV .Q10H ONE Stop: 09/27/19 04:49 Last Admin: 09/26/19 19:22 Dose: 100 mls/hr Documented by: Assessment/Plan All Active Problems Stroke-like symptoms (Acute) The patient is a 64 year old M with a significant history of stroke/TIA; hypertension; and hyperlipidemia who presents emergency department with numbness of his right forearms; subjective weakness and clumsy ambulation. Strokelike symptoms NINDS NIH Scale was 1. Serial NIHs. Not a candidate of TPA because of low NIH score. Head and neck CTA showed a moderate grade stenosis of the origin of the left common carotid artery. No occlusion or thrombosis. -Check Hba1c, Lipid level Physical therapy, and occupational therapy work with patient. Patient passed eval at emergency department. Patient was on home Plavix but not on aspirin. Reportedly e taken off aspirin. Aspirin ordered. Continue Plavix. High intensity statin continued. Lipid profile and A1c ordered. Permissive hypertension. Control blood pressure with labetalol for systolic blood pressure of more than 220 or diastolic blood pressure of more than 120. -Permissive HTN for 24 hrs, longterm goal BP < 120/80 mmHg. MRI of brain ordered. Echocardiogram ordered. Review of old records shows echocardiogram done on 08/26/2018. Echocardiogram showed left ventricular ejection fraction of 60% with no evidence of diastolic dysfunction. RVSP was 21. Mild valvular abnormalities. Placed on telemetry. Hypertension On presentation blood pressure was now within goal. Trend blood pressures. Permissive hypertension as above. Hold home blood pressure medications. Hypokalemia Review of imaging department labs showed a potassium of 3.1. Potassium tablets given at the emergency department. Trend BMP. Check magnesium level. DVT prophylaxis Subcutaneous Lovenox. OBSV E&M: 06507 Initial observation care L3
--- NOTE | 2019-09-26 21:05 | ED.DCSUM_ITS ---
- ER Visit Summary Date of Service: 09/26/19 Chief Complaint: Stroke History of Present Illness: The patient is a [address] Arroyo. He has a history of prior strokes in 2017 in August 2018. He does not see a neurologist. He reports the symptoms that he is having currently are the same as this stroke in August 2018. Approximately 30 minutes ago while mowing the lawn with a push mower he had a onset of paresthesias in his right forearm and weakness in his right hand. Does report that he did seem to have a little bit of difficulty walking due to weakness in his right leg. He denies any vertigo, a aphasia, slurred speech, or other complaints. Physical Examination: Vitals: Stable. Afebrile. General: Well-nourished and well-developed. Head: Normocephalic atraumatic. Neck: Supple, no lymphadenopathy. No JVD. Nontender. Cardiovascular: Regular rate and rhythm. No murmurs. Respiratory: No respiratory distress. Clear to auscultation bilaterally. Abdominal: Soft, nontender, nondistended, normal bowel sounds. No guarding, rebound, or peritoneal signs. Back: Nontender. Extremities: Nontender, no edema. Skin: Normal color, no rash. Neurologic: Alert and oriented ?3. Cranial nerves II through XII are intact. Normal strength. He has an NIH scale of 1 for paresthesias in the right forearm that do not continue proximal to the elbow. Psych: Normal affect. Test Results: EKG is sinus at 68. No acute changes. CBC shows hematocrit 38.8. Chem-7 shows potassium 3.1 calcium 8.3. Coags are normal. Clinical Impression(s) from Imaging Studies Chest X-Ray 09/26/19 18:50 IMPRESSION: Normal x-ray examination of the chest. Electronically Signed: Gil Thornton MD at 19:50 EDT , Service support , Head/Neck CTA 09/26/19 18:50 IMPRESSION: Normal CTA Head. 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 No occlusions. No thrombosis. Electronically Signed: Gil Thornton MD at 19:18 EDT , Service support , ADDENDUM: 09/26/191927 IMPRESSION: Normal CTA Head. 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 No occlusions. No thrombosis. N.B. : The above information has been verbally conveyed by Gil Thornton MD to Lowell Zheng MD, on 09/26/2019 19:21:52 (ET). Electronically Signed: Gil Thornton MD at 19:18 EDT , Service support , Emergency Department Course and Treatment: Patient was discussed with Dr. Olmedo the neurologist from [facility]. His NIH scale is 1 and his symptoms are distal to his elbow and onset was while mowing the lawn. This could be peripheral in origin. However, he does report that he seemed to have mild weakness of his right leg. He is not felt to be a good TPA candidate and is actually improving while in the emergency department. He was given a dose of K-Dur for his potassium. Treatment Plan: Patient was discussed with Dr. Frost. He will be admitted to the hospital for further evaluation and treatment. Disposition: Admitted in improved condition. Impression: 1. Stroke. 2. Hypokalemia. This note was generated with [employer] software. It may contain incorrect words, spelling, and punctuation that were not noted in review of the chart prior to signing ED Disposition - Plan for ED Patient: Disposition: Acute Care Hospital [facility]
--- NOTE | 2019-09-26 21:21 | ECHOCS_ITS ---
Reason For Study: TIA/CVA Procedure This was a 2D Doppler, Color Flow transthoracic echocardiogram. The study was technically difficult. Due to poor apical accoustic windows. Contrast injection was performed. Left Ventricle Normal LV size. The estimated ejection fraction is 65 %. Normal diastology for age. No regional wall motion abnormalities noted. Right Ventricle Normal RV size. Normal systolic function. Atria Normal left atrium. Normal right atrium. No doppler evidence for ASD. Mitral Valve There is no mitral valve stenosis. No mitral valve insufficiency. Tricuspid Valve There is no tricuspid stenosis. Unable to estimate RV systolic pressure due to insufficient tricuspid regurgitant envelope. Trivial tricuspid valve insufficiency. Aortic Valve Trisinus/trileaflet aortic valve. There is no aortic stenosis. Mild (1+) aortic valve insufficiency. Pulmonic Valve There is no pulmonic valvular stenosis. No pulmonic valve insufficiency. Great Vessels Normal aortic root. Pericardium/Pleural No pericardial effusion. Medication Diluted definity 3.0ml given slow IV push to enhance endocardial definition. MMode/2D Measurements & Calculations LVIDd: 5.0 cm IVSd: 0.98 cm Ao root diam: 3.8 cm LVIDs: 3.0 cm LVPWd: 1.1 cm RVDd: 4.0 cm FS: 40.0 % LAV(MOD-bp): 53.2 ml LA A4 area: 19.2 cm2 LA dimension(2D): 4.4 cm LAV(MOD-bp) Indexed: 26.8 ml/m2 LAV(MOD-sp2): 53.1 ml LAV(MOD-sp4): 53.7 ml RA A4 area: 19.2 cm2 Time Measurements MV dec time: 0.21 sec Doppler Measurements & Calculations MV E max fili: 87.9 cm/sec Lat Peak E' Fili: 7.8 cm/sec Med Peak E' Fili: 6.3 cm/sec MV A max fili: 99.5 cm/sec E/E' lat: 11.3 E/E' med: 13.9 MV E/A: 0.88 Ao V2 max: 135.2 cm/sec AI max fili: 313.5 cm/sec LV V1 max: 110.4 cm/sec Ao max P.3 mmHg AI max P.3 mmHg LV V1 max P.9 mmHg Ao V2 mean: 84.0 cm/sec AI dec slope: 155.5 cm/sec2 LV V1 mean P.1 mmHg Ao mean P.3 mmHg AI P1/2t: 590.4 msec LV V1 mean: 67.2 cm/sec Ao V2 VTI: 30.8 cm LV V1 VTI: 25.0 cm PA V2 max: 74.3 cm/sec TR max fili: 213.9 cm/sec TR max P.3 mmHg Interpretation Summary The estimated ejection fraction is 65 %. Mild (1+) aortic valve insufficiency. The study was technically difficult. Contrast injection was performed. Ordering Physician: Perry Frost Referring Physician: Dez Botello Performed By: Clarice Martinez RDCS, RVT
[2019-09-26] MEDS: Atorvastatin Calcium 80 MG Tablet PO (22:08)
[2019-09-26] MEDS: Acetaminophen 325 MG Tablet 650 MG PO (22:08)
[2019-09-27] VITALS (12 sets, daily range): BP systolic 128–166; BP diastolic 66–85; PULSE 58–82; RESP 12–16; TEMP 36.4–36.8; O2SAT 95–99; BMI 31.2
[2019-09-27 05:31] LABS: Absolute Lymphocyte Count 1.64 X10^3/uL (0.83-4.51); Absolute Neutrophil Count 4.7 X10^3/uL (2.0-7.7); Basophil# 0.04 X10^3/uL; Basophil% 0.5 % (0-1); Eosinophil# 0.34 X10^3/uL; Eosinophils% 4.5 % (0-5); Hematocrit 42.1 % (40-54); Hemoglobin 13.8 g/dL (13.0-16.5); Lymphocyte # 1.64 X10^3/ul (4.0); Lymphocyte % 21.9 % (19-41); Mean Corp Hgb Conc 32.8 g/dL (32-36); Mean Corpuscular Hgb 30.5 pg (27.0-32.0); Mean Corpuscular Volume 92.9 fL (80-94); Mean Platelet Vol. 9.4 fl (6.2-12.0); Monocyte# 0.72 X10^3/uL; Monocyte% 9.6 % (0-10); NRBC Flagged by Analyzer 0 % (0-5); Neutrophil % 62.8 % (47-70); Platelet Count 208 K/mm3 (150-450); RBC Distribution Width CV 12.8 % (11.6-14.6); RBC Distribution Width SD 43.7 fl (35.1-43.9); Red Blood Count 4.53 M/mm3 (4.6-6.2); White Blood Count 7.5 K/mm3 (4.4-11.0)
[2019-09-27 05:52] LABS: Anion Gap 7 (5-15); BUN 14 mg/dL (7-18); Calcium,Total 8.5 mg/dL (8.5-10.1); Chloride 110 mmol/L (98-107); Cholesterol 89 mg/dL (200); Creatinine, Serum 0.87 mg/dL (0.70-1.30); EST Glomerular Filtration Rate 94 mL/min (>60); Est Glom Filt Rate - Afr Amer 113 mL/min (>60); Estimated Creatinine Clearance 78.43 ml/min; Glucose 93 mg/dL (74-106); High Density Lipoprotein 32 mg/dL; Potassium 3.7 mmol/L (3.5-5.1); Sodium Level 142 mmol/L (136-145); Triglycerides 68 mg/dL; Very Low Density Lipoprotein 14 mg/dL (5-40)
[2019-09-27 08:00] LABS: Hemoglobin A1c 5.5 % (3.8-5.6)
--- NOTE | 2019-09-27 09:00 | MRI_ITS ---
STUDY: MRI BRAIN WITHOUT CONTRAST REASON FOR EXAM: Male, 64 years old. rt arm weakness, n/t TECHNIQUE: Standardized multiplanar fat and water weighted pulse sequences were obtained. COMPARISON: Head CT dated September 26, 2019. MRI of the brain dated August 26, 2018 FINDINGS: Small acute cortical infarct are present in the superior aspect of the left frontal and parietal lobes. A tiny acute infarct is also present in the periventricular white matter of the left occipital lobe. There is mild cerebral atrophy with widening of the extra-axial spaces and ventricular dilatation. There are a limited number of small white matter hyperintensities, distributed throughout the deep white matter tracts of the cerebral hemispheres, consistent with mild chronic white matter ischemic changes. Normal T2* images of the brain without demonstrated susceptibility artifact. There is no demonstrated hemosiderin stain. Normal bilateral basal ganglia. Normal thalami. There is no extra-axial fluid accumulation. Normal flow voids within the major intracranial circulation suggesting patency by spin echo criteria. Normal sella turcica, pituitary gland, infundibular stalk, optic chiasm and hypothalamus. Normal tectal plate and pineal gland. Normal midbrain, pancho and medulla. Normal cerebellum. Normal basal cisterns. Normal bilateral temporal bones. Normal bilateral internal auditory canals. No demonstrated orbital abnormality, within the constraints of a routine brain study. Mild mucosal thickening and mucus opacification is present in the frontal ethmoid sinuses as well as the maxillary sinuses.. Normal calvarium and skull base. Normal visualized soft tissue structures. Normal visualized upper cervical spine. MRI/Brain without Contrast IMPRESSION: 1. Small acute cortical infarcts of the superior aspect of the left frontal and parietal lobes. 2. Tiny acute infarct in the left occipital lobe. N.B. : The above information has been verbally conveyed by Juan Jose Lugo MD to Charge Nurse KENTRELL Bhatti, on 09/27/2019 16:36:04 (ET). Electronically Signed: Juan Jose Lugo MD at 16:37 EDT , Service support ,
[2019-09-27] MEDS: Clopidogrel Bisulfate 75 MG Tablet PO (09:36)
[2019-09-27] MEDS: Aspirin 81 MG TAB.CHEW PO (09:36)
[2019-09-27] MEDS: Multivitamins,Therapeutic Tablet 1 TABLET PO (09:36)
[2019-09-27] MEDS: Enoxaparin 40 MG/0.4 ML Syringe SC (09:36)
--- NOTE | 2019-09-27 11:32 | PN_ITS ---
<Flavio Mitchell - Last Filed: 09/27/19 11:32> Patient Problems: Active and Suspected Problems Stroke-like symptoms (Acute) Reason for Visit: RUE weakness Subjective: Pt states his symptoms are similar to the stroke he had about 1 year ago. He has right upper extremity weakness. This has improved however it is not back to baseline. He had weakness in his right arm for about 2 weeks after the last stroke with eventual resolution of symptoms and no residual. He denies parasthesias, vision change, speech change, swallowing issues. He had a 30 day monitor after last event which was negative. Vitals/I&O's: Vital Signs Temp Pulse Resp BP Pulse Ox 98.2 F 62 12 152/76 H 96 09/27/19 10:00 09/27/19 10:00 09/27/19 10:00 09/27/19 10:00 09/27/19 10:00 Oxygen Delivery Method Room Air Weight: 196 lb 10.437 oz Body Mass Index (BMI) 31.2 Finger Stick Blood Glucose 84 Intake and Output for Last 24 Hours 09/25/19 09/26/19 09/27/19 23:59 23:59 23:59 Intake Total 1240 / 1240 Balance 1240 / 1240 General: Alert, Oriented x3, Cooperative HEENT: Atraumatic, PERRLA, EOMI, Normocephalic Neck: Supple, No JVD, Negative Carotid Bruits Lungs: Clear to auscultation, Normal air movement Cardiovascular: Regular rate, No murmurs Abdomen: Bowel Sounds Present, Soft, Non Tender Extremities: No edema, Capillary Refill Less than 3 Seconds Skin: No rashes, No breakdown Musculoskeletal: No Tenderness to Palpation of Joints or Extremities Neurological: Cranial nerves II-XII grossly intact, - - mild decreased sausage meat trimmer strength right hand Psych/Mental Status: Normal Affect, Appropriate, Alert and oriented to time, place, person, mood and affect Laboratory Results 09/26/19 18:48: POC Glucose 84 09/26/19 19:05: WBC 8.0, RBC 4.22 L, Hgb 13.1, Hct 38.8 L, MCV 91.9, MCH 31.0, MCHC 33.8, RDW Std Deviation 42.8, RDW Coeff of Artie 12.7, Plt Count 222, MPV 9 .3, Immature Gran % (Auto) 0.600, Neut % (Auto) 65.2, Lymph % (Auto) 21.9, [place] % (Auto) 10.1 H, Eos % (Auto) 1.9, Baso % (Auto) 0.3, Absolute Neuts (auto) 5.2, Absolute Lymphs (auto) 1.74, Nucleated RBC % 0 09/26/19 19:05: PT 13.4, INR 1.1, APTT 26.7 09/26/19 19:05: Sodium 143, Potassium 3.1 L, Chloride 107, Carbon Dioxide 26.0, Anion Gap 10, BUN 15, Creatinine 0.98, Estim Creat Clear Calc 69.62, Est GFR (MDRD) Af Amer 99, Est GFR (MDRD) Non-Af 82, BUN/Creatinine Ratio 15.3, Glucose 81, Calcium 8.3 L 09/27/19 05:12: Sodium 142, Potassium 3.7, Chloride 110 H, Carbon Dioxide 25.0, Anion Gap 7, BUN 14, Creatinine 0.87, Estim Creat Clear Calc 78.43, Est GFR (MDRD) Af Amer 113, Est GFR (MDRD) Non-Af 94, BUN/Creatinine Ratio 16.0, Glucose 93, Calcium 8.5, Magnesium 2.0, Triglycerides 68, Cholesterol 89, LDL Cholesterol 43, VLDL Cholesterol 14, HDL Cholesterol 32 L 09/27/19 05:12: WBC 7.5, RBC 4.53 L, Hgb 13.8, Hct 42.1, MCV 92.9, MCH 30.5, MCHC 32.8, RDW Std Deviation 43.7, RDW Coeff of Artie 12.8, Plt Count 208, MPV 9.4, Immature Gran % (Auto) 0.700, Neut % (Auto) 62.8, Lymph % (Auto) 21.9, [place] % (Auto) 9.6, Eos % (Auto) 4.5, Baso % (Auto) 0.5, Absolute Neuts (auto) 4.7, Absolute Lymphs (auto) 1.64, Nucleated RBC % 0 09/27/19 05:12: Hemoglobin A1c 5.5 Current Medications Acetaminophen (Tylenol) 650 mg PO Q6H PRN PRN PRN Reason: Pain Score 1-10/Temp > 100.7 F Last Admin: 09/26/19 22:08 Dose: 650 mg Documented by: Aspirin (Aspirin, Baby) 81 mg PO DAILY@0800 [facility] Last Admin: 09/27/19 09:36 Dose: 81 mg Documented by: Atorvastatin Calcium (Lipitor) 80 mg PO QHS [facility] Last Admin: 09/26/19 22:08 Dose: 80 mg Documented by: Clopidogrel Bisulfate (Plavix) 75 mg PO DAILY [facility] Last Admin: 09/27/19 09:36 Dose: 75 mg Documented by: Dextrose (D50w Syringe) 0 gm IV X1 PRN; Protocol PRN Reason: Hypoglycemia Enoxaparin Sodium (Lovenox) 40 mg SC DAILY [facility] Last Admin: 09/27/19 09:36 Dose: 40 mg Documented by: Glucagon () 1 mg IM .X1 PRN PRN Reason: Hypoglycemia Hydralazine HCl (Apresoline Iv) 5 mg IV Q30M PRN PRN Reason: to maintain BP goals Sodium Chloride () 250 mls @ 15 mls/hr IV .[id number] PRN PRN Reason: Saline Flush Sodium Chloride () 250 mls @ 15 mls/hr IV .[id number] PRN PRN Reason: Additional IVPB Infusion Labetalol HCl (Trandate) 10 - 20 mg IV Q10M PRN PRN PRN Reason: to maintain BP goals Lorazepam (Ativan) 1 mg IV X1 PRN PRN Reason: enroute to MRI Melatonin (Melatonin) 3 mg PO QHS PRN PRN PRN Reason: INSOMNIA [facility] Last Admin: 09/27/19 09:36 Dose: 1 tablet Documented by: Prochlorperazine Edisylate (Compazine Iv) 5 mg IV Q4H PRN PRN PRN Reason: Breakthrough Nausea/Vomiting Senna/Docusate Sodium (Senokot-S, Shelia-Colace) 2 tablet PO BID PRN PRN PRN Reason: Constipation Sodium Chloride () 10 - 40 ml IV UD PRN PRN Reason: SALINE FLUSH STROKE Vital Signs/Narrative: Vital Signs Temp Pulse Resp BP Pulse Ox 09/27/19 10:00 98.2 F 62 12 152/76 H 96 09/27/19 07:39 97.5 F L 65 12 145/85 H 96 Medical Necessity - Tobacco Use Smoking Status: Never smoker Tobacco Use: Non-smoker Assessment/Plan All Active Problems Stroke-like symptoms (Acute) 1. Suspected recurrent CVA - right upper ext weakness. CT brain neg. Similar presentation at time of stroke 08/2018. Had 30 day monitor without afib. Obtain MRI and neuro eval. CTA head/neck with moderate stenosis noted. Continue aspirin/statin/plavix, was on statin and plavix at home. Repeat Echo. Maintain on tele. PT/OT/ST evals. Prior echo with no ASD. 2. HTN - permissive 3. Carotid stenosis - moderate grade stenosis origin of the left common carotid. continue statin, asa, plavix, refer to vascular as o/p. DVT ppx: lovenox DC planning: pending MRI, neuro eval. This patient was seen by Flavio Mitchell PA-C under the supervision of Dr. Lambert. <Wesley Lambert - Last Filed: 09/27/19 11:42> Vitals/I&O's: Vital Signs Temp Pulse Resp BP Pulse Ox 98.2 F 62 12 152/76 H 96 09/27/19 10:00 09/27/19 10:00 09/27/19 10:00 09/27/19 10:00 09/27/19 10:00 Oxygen Delivery Method Room Air Weight: 89.2 kg Body Mass Index (BMI) 31.2 Finger Stick Blood Glucose 84 Intake and Output for Last 24 Hours 09/25/19 09/26/19 09/27/19 23:59 23:59 23:59 Intake Total 1240 / 1240 Balance 1240 / 1240 Laboratory Results 09/26/19 18:48: POC Glucose 84 09/26/19 19:05: WBC 8.0, RBC 4.22 L, Hgb 13.1, Hct 38.8 L, MCV 91.9, MCH 31.0, MCHC 33.8, RDW Std Deviation 42.8, RDW Coeff of Artie 12.7, Plt Count 222, MPV 9.3, Immature Gran % (Auto) 0.600, Neut % (Auto) 65.2, Lymph % (Auto) 21.9, [place] % (Auto) 10.1 H, Eos % (Auto) 1.9, Baso % (Auto) 0.3, Absolute Neuts (auto) 5.2, Absolute Lymphs (auto) 1.74, Nucleated RBC % 0 09/26/19 19:05: PT 13.4, INR 1.1, APTT 26.7 09/26/19 19:05: Sodium 143, Potassium 3.1 L, Chloride 107, Carbon Dioxide 26.0, Anion Gap 10, BUN 15, Creatinine 0.98, Estim Creat Clear Calc 69.62, Est GFR (MDRD) Af Amer 99, Est GFR (MDRD) Non-Af 82, BUN/Creatinine Ratio 15.3, Glucose 81, Calcium 8.3 L 09/27/19 05:12: Sodium 142, Potassium 3.7, Chloride 110 H, Carbon Dioxide 25.0, Anion Gap 7, BUN 14, Creatinine 0.87, Estim Creat Clear Calc 78.43, Est GFR (MDRD) Af Amer 113, Est GFR (MDRD) Non-Af 94, BUN/Creatinine Ratio 16.0, Glucose 93, Calcium 8.5, Magnesium 2.0, Triglycerides 68, Cholesterol 89, LDL Cholesterol 43, VLDL Cholesterol 14, HDL Cholesterol 32 L 09/27/19 05:12: WBC 7.5, RBC 4.53 L, Hgb 13.8, Hct 42.1, MCV 92.9, MCH 30.5, MCHC 32.8, RDW Std Deviation 43.7, RDW Coeff of Artie 12.8, Plt Count 208, MPV 9.4, Immature Gran % (Auto) 0.700, Neut % (Auto) 62.8, Lymph % (Auto) 21.9, [place] % (Auto) 9.6, Eos % (Auto) 4.5, Baso % (Auto) 0.5, Absolute Neuts (auto) 4.7, Absolute Lymphs (auto) 1.64, Nucleated RBC % 0 09/27/19 05:12: Hemoglobin A1c 5.5 Current Medications Acetaminophen (Tylenol) 650 mg PO Q6H PRN PRN PRN Reason: Pain Score 1-10/Temp > 100.7 F Last Admin: 09/26/19 22:08 Dose: 650 mg Documented by: Aspirin (Aspirin, Baby) 81 mg PO DAILY@0800 [facility] Last Admin: 09/27/19 09:36 Dose: 81 mg Documented by: Atorvastatin Calcium (Lipitor) 80 mg PO QHS [facility] Last Admin: 09/26/19 22:08 Dose: 80 mg Documented by: Clopidogrel Bisulfate (Plavix) 75 mg PO DAILY [facility] Last Admin: 09/27/19 09:36 Dose: 75 mg Documented by: Dextrose (D50w Syringe) 0 gm IV X1 PRN; Protocol PRN Reason: Hypoglycemia Enoxaparin Sodium (Lovenox) 40 mg SC DAILY [facility] Last Admin: 09/27/19 09:36 Dose: 40 mg Documented by: Glucagon () 1 mg IM .X1 PRN PRN Reason: Hypoglycemia Hydralazine HCl (Apresoline Iv) 5 mg IV Q30M PRN PRN Reason: to maintain BP goals Sodium Chloride () 250 mls @ 15 mls/hr IV .[id number] PRN PRN Reason: Saline Flush Sodium Chloride () 250 mls @ 15 mls/hr IV .[id number] PRN PRN Reason: Additional IVPB Infusion Labetalol HCl (Trandate) 10 - 20 mg IV Q10M PRN PRN PRN Reason: to maintain BP goals Lorazepam (Ativan) 1 mg IV X1 PRN PRN Reason: enroute to MRI Melatonin (Melatonin) 3 mg PO QHS PRN PRN PRN Reason: INSOMNIA [facility]) [facility] Last Admin: 09/27/19 09:36 Dose: 1 tablet Documented by: Prochlorperazine Edisylate (Compazine Iv) 5 mg IV Q4H PRN PRN PRN Reason: Breakthrough Nausea/Vomiting Senna/Docusate Sodium (Senokot-S, Shelia-Colace) 2 tablet PO BID PRN PRN PRN Reason: Constipation Sodium Chloride () 10 - 40 ml IV UD PRN PRN Reason: SALINE FLUSH STROKE Vital Signs/Narrative: Vital Signs Temp Pulse Resp BP Pulse Ox 09/27/19 10:00 98.2 F 62 12 152/76 H 96 Assessment/Plan This patient was seen in conjunction with Flavio Mitchell PA-C . I have independently interviewed and examined the patient and reviewed pertinent historical, laboratory, and other data. Please refer to Flavio Mitchell PA-C note for details of this patient's presentation, findings, and recommendations. I have reviewed Flavio Mitchell PA-C note and concur with documented findings. In brief, patient is a 64-year-old gentleman with past medical history single for previous ischemic CVA in August 2018, hypertension, history of carotid artery stenosis who presented with right upper extremity weakness. Presented diagnosis of acute CVA made admitted to a monitored bed where patient is currently undergoing evaluation Physical Examination: GENERAL: cooperative HEENT: Atraumatic; EYES; Anicteric, Normal Conjunctiva NECK; supple, normal thyroid, RESPIRATORY: Diminished to auscultation CARDIOVASCULAR: Regular S1 S2, GI: soft, normoactive bowel sounds, : No Renal angle tenderness; EXTREMITIES: No edema, no clubbing, MUSCULOSKELETAL: no muscle waisting NEURO: Awake; muscle strength 5/5 in all extremities SKIN: No Rash PSYCH; Flat affect Assessment: 1. Suspected CVA 2. Previous history of CVA 3. Essential hypertension 4. Peripheral arterial disease with known history of moderate grade stenosis at the origin of the left common carotid artery 5. DVT prophylaxis Recommendations: 1. I have discussed the results of my overview and impressions with the patient 2. Options for management were reviewed OBSV E&M: [id number] Initial observation care L3
--- NOTE | 2019-09-27 13:10 | CASEMGMT ---
SW completed a PHQ 9 with patient as he may have had a Stroke or TIA. He scored a 0 which indicates no depression. Lea RENNER MSW
[2019-09-27] MEDS: 0.9% Saline Lock 10 ML Syringe IV ×2 (14:39→22:13)
[2019-09-27] MEDS: LORazepam 2 MG/ML Syringe 1 MG IV (14:39)
[2019-09-27] MEDS: Acetaminophen 325 MG Tablet 650 MG PO (18:19)
[2019-09-27] MEDS: Atorvastatin Calcium 80 MG Tablet PO (22:13)
[2019-09-28 00:42] VITALS: BMI 31.2
[2019-09-28 03:15] VITALS: BP 135/72; PULSE 63; RESP 16; TEMP 36.6; O2SAT 95
[2019-09-28 06:03] LABS: Hematocrit 42.3 % (40-54); Mean Corp Hgb Conc 33.1 g/dL (32-36); Mean Corpuscular Hgb 30.5 pg (27.0-32.0); Mean Corpuscular Volume 92.2 fL (80-94); Mean Platelet Vol. 9.4 fl (6.2-12.0); Platelet Count 221 K/mm3 (150-450); RBC Distribution Width CV 12.6 % (11.6-14.6); RBC Distribution Width SD 42.4 fl (35.1-43.9); Red Blood Count 4.59 M/mm3 (4.6-6.2); White Blood Count 7.8 K/mm3 (4.4-11.0)
[2019-09-28 06:33] LABS: Anion Gap 7 (5-15); BUN 13 mg/dL (7-18); BUN/Creat Ratio 13.8 RATIO (10-20); Calcium,Total 8.7 mg/dL (8.5-10.1); Chloride 108 mmol/L (98-107); Creatinine, Serum 0.94 mg/dL (0.70-1.30); EST Glomerular Filtration Rate 86 mL/min (>60); Est Glom Filt Rate - Afr Amer 104 mL/min (>60); Estimated Creatinine Clearance 72.59 ml/min; Glucose 104 mg/dL (74-106); Potassium 3.5 mmol/L (3.5-5.1); Sodium Level 142 mmol/L (136-145)
[2019-09-28 06:45] VITALS: BP 153/80; PULSE 66; RESP 18; TEMP 36.9; O2SAT 96
[2019-09-28 07:35] VITALS: PULSE 74
[2019-09-28] MEDS: Aspirin 81 MG TAB.CHEW PO (08:17)
[2019-09-28] MEDS: Multivitamins,Therapeutic Tablet 1 TABLET PO (08:18)
[2019-09-28] MEDS: Clopidogrel Bisulfate 75 MG Tablet PO (08:18)
[2019-09-28] MEDS: Enoxaparin 40 MG/0.4 ML Syringe SC (08:18)
[2019-09-28 08:28] VITALS: BMI 31.2
--- NOTE | 2019-09-28 09:54 | CASEMGMT ---
RN [employer]AM [employer]ODUCTION ENGINEER CM to room to meet with patient for initial transition planning/care coordination assessment. KENTRELL BANEGAS introduced self and role at [facility]. Pt voices understanding and consents to assessment at this time. Pt resting in bed in no distress at this time. Pt is A/O at this time and answers all questions appropriately. Care providers, pharmacy, and demographics verified/updated at this time. PCP: Dr Botello Specialists: denies Preferred Pharmacy: [facility] Insurance: [employer] Prescription Benefit: Yes Living Will/HPOA: Has both LW and Healthcare POA, who is his , Tino QUIÑONEZ: Living Arrangements: Lives w/his in single-story home w/2 steps to enter. Independent. Transportation: Pt states drives self and states no transportation concerns at this time. will take pt home @ D/C DME: States has the following DME: BIPAP through [facility] Pt states no need for further DME at this time. HHC/SNF: No history of either. No needs identified. PT/OT/ST evals have been completed/reviewed. No additional therapy recommended and pt denies need for OP therapy. He states his daughter is an OT and she will assist him if needed. Pt wishes to return home and states has no concerns with going home at time of discharge. CM to follow for any discharge planning/needs. Pt voices no concerns/needs at this time. Advised pt to ask for CM if any further questions/concerns/needs arise. Voices understanding. PLAN: Home Sara PORTILLO RN, CM
[2019-09-28 10:45] VITALS: BP 149/70; PULSE 66; RESP 16; TEMP 36.4; O2SAT 97
[2019-09-28 11:00] VITALS: PULSE 71
--- NOTE | 2019-09-28 11:33 | DCINST_ITS ---
- Discharge Diagnoses Current Active Problems: Current Active and Chronic Problems Stroke (Acute) You will use the following diet at home:: Cardiac Discharge Activity: Return to Normal Activity Call your doctor if you observe: Shortness of breath, Dizziness, Fainting s pells, Chest pain Additional Instructions: Follow-up with neurology to discuss outpatient SYLVAIN (transesophageal echocardiogram). Allergies/Adverse Reactions: Allergies No Known Allergies Allergy (Verified 08/25/18 22:11) Medications to take at Discharge Atorvastatin Calcium [Lipitor] 80 mg PO QHS 02/25/17 Hydrochlorothiazide [Hctz] 12.5 mg PO DAILY #0 08/26/18 Lisinopril [Zestril] 40 mg PO DAILY #0 08/26/18 Clopidogrel Bisulfate [Plavix] 75 mg PO DAILY 09/26/19 Multivitamin 1 tab PO DAILY 09/26/19 Aspirin [Aspirin, Baby] 81 mg PO DAILY@0800 #0 tab.chew 09/28/19 Primary Care Physician: Hernandez Botello MD [Primary Care Provider] - Please follow up with your Primary Care Physician in: 1 Week Test Results: Test results from this visit will be discussed in further detail at your follow- up appointment, if applicable. Please Follow Up With: Dr. Land - Neurology When: 1 Week Proposed Discharge Date: 09/28/19
[2019-09-28 11:53] VITALS: BP 149/70; PULSE 66; RESP 16; TEMP 36.4; O2SAT 97
--- NOTE | 2019-09-28 11:55 | PHA.DC.MC ---
Pharmacy Service has performed discharge medication reconciliation and counseling for this patient. 1. ASPIRIN 81MG PO DAILY The patient's discharge medication list was reviewed for discrepancies and discrepancies were resolved. Home Medications Atorvastatin Calcium [Lipitor] 80 mg PO QHS 02/25/17 Hydrochlorothiazide [Hctz] 12.5 mg PO DAILY #0 08/26/18 Lisinopril [Zestril] 40 mg PO DAILY #0 08/26/18 Clopidogrel Bisulfate [Plavix] 75 mg PO DAILY 09/26/19 Multivitamin 1 tab PO DAILY 09/26/19 Aspirin [Aspirin, Baby] 81 mg PO DAILY@0800 #0 tab.chew 09/28/19 The patient was counseled on the following discharge medications and changes in medications for homegoing were reviewed. The Reason for Use, instructions for use, and potential side effects were reviewed for all new medications. The patient's questions regarding all of their medications were answered. The patient was able to verbally demonstrate an understanding of their discharge medications.
--- NOTE | 2019-09-28 12:21 | PCM.DC.SUM ---
Discharge Date and Diagnosis Date of Admission: 09/26/19 Date of Discharge: 09/28/19 - Primary Discharge Diagnosis Acute Problems: Active Problems 1. Acute recurrent CVA 2. Hypertension 3. Carotid stenosis - Secondary Discharge Diagnosis Chronic Problems: Chronic Problems Colon polyps (Chronic) GERD (gastroesophageal reflux disease) (Chronic) Obesity (BMI 30.0-34.9) (Chronic) HLD (hyperlipidemia) (Chronic) HTN (hypertension) (Chronic) Hospital Course and Treatment Imaging Results: Diagnostic Data Chest X-Ray 09/26/19 18:50 IMPRESSION: Normal x-ray examination of the chest. Electronically Signed: Gil Thornton MD at 19:50 EDT , Service support , Head/Neck CTA 09/26/19 18:50 IMPRESSION: Normal CTA Head. 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 No occlusions. No thrombosis. Electronically Signed: Gil Thornton MD at 19:18 EDT , Service support , ADDENDUM: 09/26/19 192 IMPRESSION: Normal CTA Head. 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 No occlusions. No thrombosis. N.B. : The above information has been verbally conveyed by Gil Thornton MD to Lowell Zheng MD, on 09/26/2019 19:21:52 (ET). Electronically Signed: Gil Thornton MD at 19:18 EDT , Service support , Brain MRI 09/27/19 09:00 IMPRESSION: 1. Small acute cortical infarcts of the superior aspect of the left frontal and parietal lobes. 2. Tiny acute infarct in the left occipital lobe. N.B. : The above information has been verbally conveyed by Juan Jose Lugo MD to Charge Nurse Magy RN, on 09/27/2019 16:36:04 (ET). Electronically Signed: Juan Jose Lugo MD at 16:37 EDT , Service support , ADDENDUM: 09/27/19 1644 IMPRESSION: 1. Small acute cortical infarcts of the superior aspect of the left frontal and parietal lobes. 2. Tiny acute infarct in the left occipital lobe. N.B. : The above information has been verbally conveyed by Juan Jose Lugo MD to Charge Nurse KENTRELL Bhatti, on 09/27/2019 16:36:04 (ET). Electronically Signed: Juan Jose Lugo MD at 16:37 EDT , Service support , SOC neurology Operations: None Procedures: 2-D Echocardiogram Summary of Care Provided: The patient is a 64 year old M admitted 09/26/2019 due to right forearm numbness. 1. Acute recurrent CVA-brain MRI demonstrates small acute cortical infarcts of the superior aspect of the left frontal and parietal lobes. Tiny acute infarct in the left occipital lobe. Patient's symptoms are the same as prior CVAs. SOC neurology consult obtained. Recommend aspirin and Plavix for 21 days followed by single antiplatelet. Patient had prior 30-day event monitor which did not show A. fib/arrhythmia. Recommended SYLVAIN as outpatient. Patient has followed with Dr. Darby in the past. Would like to follow-up with Dr. Land, neurology in the future. Further discussed SYLVAIN with neurology at outpatient follow-up. Continue high-dose statin. Echocardiogram demonstrates an EF of 65%, mild aortic valve insufficiency. 2. Hypertension-stable, continue HCTZ, lisinopril regimen. 3. Carotid stenosis-continue aspirin, statin. Recommend follow-up with vascular. General: Alert, Oriented x3, Cooperative HEENT: Atraumatic, PERRLA, EOMI, Normocephalic Neck: Supple, No JVD, Negative Carotid Bruits Lungs: Clear to auscultation, Normal air movement Cardiovascular: Regular rate, No murmurs Abdomen: Bowel Sounds Present, Soft, Non Tender Extremities: No edema, Capillary Refill Less than 3 Seconds Skin: No rashes, No breakdown Musculoskeletal: No Tenderness to Palpation of Joints or Extremities Neurological: Cranial nerves II-XII grossly intact, mild sensory deficits right hand and arm-strength intact Psych/Mental Status: Normal Affect, Appropriate Patient seen and examined prior to discharge. Physical assessment as noted above. Patient is stable for discharge with follow up recommendations as noted above. This patient was seen by RE Carbajal under the supervision of Dr. Titus. - Physical Exam Vitals/I&O's: Vital Signs Temp Pulse Resp BP Pulse Ox 97.6 F L 66 16 149/70 H 97 09/28/19 11:53 09/28/19 11:53 09/28/19 11:53 09/28/19 11:53 09/28/19 11:53 Oxygen Delivery Method Room Air Weight: 196 lb 10.437 oz Body Mass Index (BMI) 31.2 Finger Stick Blood Glucose 84 Intake and Output for Last 24 Hours 09/26/19 09/27/19 09/28/19 23:59 23:59 23:59 Intake Total 2340 / 2340 610 / 610 Output Total 100 / 100 Balance 2240 / 2240 610 / 610 Laboratory Results 09/28/19 05:30: WBC 7.8, RBC 4.59 L, Hgb 14.0, Hct 42.3, MCV 92.2, MCH 30.5, MCHC 33.1, RDW Std Deviation 42.4, RDW Coeff of Artie 12.6, Plt Count 221, MPV 9.4 09/28/19 05:30: Sodium 142, Potassium 3.5, Chloride 108 H, Carbon Dioxide 27.0, Anion Gap 7, BUN 13, Creatinine 0.94, Estim Creat Clear Calc 72.59, Est GFR (MDRD) Af Amer 104, Est GFR (MDRD) Non-Af 86, BUN/Creatinine Ratio 13.8, Glucose 104, Calcium 8.7, Magnesium 2.0 Current Medications Acetaminophen (Tylenol) 650 mg PO Q6H PRN PRN PRN Reason: Pain Score 1-10/Temp > 100.7 F Last Admin: 09/27/19 18:19 Dose: 650 mg Documented by: Aspirin (Aspirin, Baby) 81 mg PO DAILY@0800 [facility] Last Admin: 09/28/19 08:17 Dose: 81 mg Documented by: Atorvastatin Calcium (Lipitor) 80 mg PO QHS [facility] Last Admin: 09/27/19 22:13 Dose: 80 mg Documented by: Clopidogrel Bisulfate (Plavix) 75 mg PO DAILY [facility] Last Admin: 09/28/19 08:18 Dose: 75 mg Documented by: Dextrose (D50w Syringe) 0 gm IV X1 PRN; Protocol PRN Reason: Hypoglycemia Enoxaparin Sodium (Lovenox) 40 mg SC DAILY [facility] Last Admin: 09/28/19 08:18 Dose: 40 mg Documented by: Glucagon () 1 mg IM .X1 PRN PRN Reason: Hypoglycemia Hydralazine HCl (Apresoline Iv) 5 mg IV Q30M PRN PRN Reason: to maintain BP goals Sodium Chloride () 250 mls @ 15 mls/hr IV .[id number] PRN PRN Reason: Saline Flush Sodium Chloride () 250 mls @ 15 mls/hr IV .[id number] PRN PRN Reason: Additional IVPB Infusion Labetalol HCl (Trandate) 10 - 20 mg IV Q10M PRN PRN PRN Reason: to maintain BP goals Lorazepam (Ativan) 1 mg IV X1 PRN PRN Reason: enroute to MRI Last Admin: 09/27/19 14:39 Dose: 1 mg Documented by: Melatonin (Melatonin) 3 mg PO QHS PRN PRN PRN Reason: INSOMNIA [facility]) [facility] Last Admin: 09/28/19 08:18 Dose: 1 tablet Documented by: Prochlorperazine Edisylate (Compazine Iv) 5 mg IV Q4H PRN PRN PRN Reason: Breakthrough Nausea/Vomiting Senna/Docusate Sodium (Senokot-S, Shelia-Colace) 2 tablet PO BID PRN PRN PRN Reason: Constipation Sodium Chloride () 10 - 40 ml IV UD PRN PRN Reason: SALINE FLUSH Last Admin: 09/27/19 22:13 Dose: 10 ml Documented by: Discharge Diet: Low fat/ Low Cholesterol Discharge Activity: Return to Normal Activity Call your doctor if you observe: Shortness of breath, Dizziness, Fainting spells, Chest pain Home Medications: Medications to take at Discharge Atorvastatin Calcium [Lipitor] 80 mg PO QHS 02/25/17 Hydrochlorothiazide [Hctz] 12.5 mg PO DAILY #0 08/26/18 Lisinopril [Zestril] 40 mg PO DAILY #0 08/26/18 Clopidogrel Bisulfate [Plavix] 75 mg PO DAILY 09/26/19 Multivitamin 1 tab PO DAILY 09/26/19 Aspirin [Aspirin, Baby] 81 mg PO DAILY@0800 #0 tab.chew 09/28/19 Primary Care Physician: Hernandez Botello MD [Primary Care Provider] - Please follow up with your Primary Care Physician in: 1 Week Please Follow Up With: Dr. Land When: 1 Week Please Follow Up With: Hernandez Botello MD Disposition: Home Minutes spent on discharge:: 35 Patient Condition:: Stable Medical Necessity - Tobacco Use Smoking Status: Never smoker Tobacco Use: Non-smoker Meaningful Use Info Meaningful Use Diagnoses (Choose all that apply): Ischemic CVA - CVA Therapy Assessed for PT,OT and/or ST?: Yes - Ischemic Stroke Antithrombotic order at d/c?: Yes Dx of Atrial fib/flutter?: No Statins at discharge?: Yes Primary Dx Acute Ischemic CVA?: Yes IV tPA ordered during stay?: No Reason IV t-PA not ordered: Medical Contraindication
== END 2019-09-28 12:50 | disposition home or self-care (01) | DRG 66 ==
LOC: ED 18:49 → PCU 21:03
PROVIDERS: Internal Medicine; Admitting Provider Hospitalist; Emergency Provider Emergency Medicine; PCP Family Medicine; Visit Provider Internal Medicine
DX: I63.9 Cerebral infarction, unspecified (principal); E87.6 Hypokalemia; R29.701 NIHSS score 1; K21.9 Gastro-esophageal reflux disease without esophagitis; E78.5 Hyperlipidemia, unspecified; I10 Essential (primary) hypertension; E66.9 Obesity, unspecified; Z68.32 Body mass index [BMI] 32.0-32.9, adult; Z79.02 Long term (current) use of antithrombotics/antiplatelets; Z79.82 Long term (current) use of aspirin; Z79.899 Other long term (current) drug therapy; Z82.49 Family history of ischemic heart disease and other diseases of the circulatory system; Z83.3 Family history of diabetes mellitus; Z86.73 Personal history of transient ischemic attack (TIA), and cerebral infarction without residual deficits; Z87.19 Personal history of other diseases of the digestive system; I73.9 Peripheral vascular disease, unspecified; I65.29 Occlusion and stenosis of unspecified carotid artery; I35.1 Nonrheumatic aortic (valve) insufficiency
CPT/HCPCS: 36415; 70496; 70498; 70551; 71045; 80048; 80061; 82962; 83036; 83735; 85025; 85027; 85610; 85730; 92523; 92526; 93005; 93306; 94762; 97162; 97166; 97802; 99285; J7030; Q9957; Q9967; A4216; C8929